=== PATIENT | male | born 1960 | race Caucasian/White ===

== ENCOUNTER 2024-01-16 01:02 | Inpatient (IN) | payer MEDICARE, OTHER, SELFPAY ==
[2024-01-15 18:25] VITALS: BP 142/80
[2024-01-15] MEDS: OMNIPAQUE 50 ML PO (18:44)
[2024-01-15 18:54] LABS: % Basophils 0.4 % (0-2); % Eosinophils 1.5 % (0-6); % Immature Granulocytes 0.5 % (0-0.5); % Lymphocytes 27.1 % (20.5-51.1); % Monocytes 13.8 % (1.7-9.3); % Neutrophils 56.7 % (42.2-75.2); Absolute Eosinophils 0.1 10^3/uL (0-0.7); Absolute Lymphocytes 2.1 10^3/uL (1.2-3.4); Absolute Monocytes 1.1 10^3/uL (0.1-0.6); Absolute Neutrophils 4.5 10^3/uL (1.4-6.5); Hemoglobin 9.9 g/dL (13.0-18.0); Mean Corp Hgb Conc. 30.9 g/dL (33.0-37.0); Mean Corpuscular Volume 87.2 fL (80.0-94.0); Mean Platelet Volume 9.4 fL (7.4-10.4); Nucleated Red Blood Cells % 0 % (-); Platelet Count 411 10^3/uL (130-400); Red Blood Cell Count 3.67 10^6/uL (4.70-6.10); Red Cell Dist. Width 14.1 % (11.5-14.5); White Blood Cell Count 7.9 10^3/uL (4.8-10.8)
[2024-01-15 19:10] LABS: ALT (SGPT) 12 U/L (0-50); AST (SGOT) 20 U/L (17-59); Albumin 3.7 g/dl (3.5-5.0); Alkaline Phosphatase 83 U/L (38-126); Blood Urea Nitrogen 22 mg/dl (9-20); Calcium 9.3 mg/dl (8.4-10.2); Carbon Dioxide 36 mmol/L (22-30); Chloride 96 mmol/L (98-107); Glucose 111 mg/dl (70-99); Potassium 4.5 mmol/L (3.5-5.1); Sodium 137 mmol/L (135-145); Total Bilirubin 0.2 mg/dl (0.2-1.3); Total Protein 6.7 g/dl (6.3-8.2); eGFR > 60.00
[2024-01-15 19:47] VITALS: BP 144/94
[2024-01-15 19:54] VITALS: BMI 24.2
[2024-01-15 20:00] VITALS: BP 132/88
[2024-01-15] MEDS: DILAUDID 1 MG IV ×3 (20:36→23:47)
[2024-01-15 21:00] VITALS: BP 127/81
[2024-01-15 22:00] VITALS: BP 149/81
--- NOTE | 2024-01-15 22:51 | ED.GENMED ---
History of Present Illness
General
Chief Complaint: Abdominal Pain
Source: patient
Exam Limitations: none
Time Seen by Provider: 01/15/24 19:50
Nursing documentation reviewed up to this point in time: agreed with
History of Present Illness
History of Present Illness:
63-year-old male past medical history of COPD chronically on oxygen presenting to the emergency department with worsening left lower quadrant abdominal pain initially was somewhat intermittent over the past few weeks but specifically worsening
today's. Has noticed some chills and nausea. Has had some trouble with bowel movements more recently.
Past History
Past History
ED Past Medical History: CAD, COPD, Hypercholesterolemia, Psychiatric (Anxiety) and Other (Chronic neck pain, narcotic dependent, chronic daily migraines)
ED Past Surgical History: Cardiac (PTCA with stent, 2004, 2007), Orthopedic (Rotator cuff repair, C4-C5 fusion) and Tonsilectomy
Social History
Tobacco: Smoker
Alcohol: Occasional
Personal:
Living: with family
Employment: Employed ([employer])
Family History
Family History: Hypertension and CAD
Review of Systems
Review of Systems
Allergies reviewed?: Yes
All Other Systems: ROS reviewed and negative except as documented in HPI and ROS
Phy Exam
Physical Exam
Physical Exam:
GENERAL: Alert , in no apparent distress
EYE: pupils equal and reactive
NECK: Supple, no significant adenopathy.
ENT: o/p clr, mmm.
CARDIAC: Regular rate and rhythm .
LUNGS: Clear breath sounds bilaterally, no acute respiratory distress, no wheezes/rales/rhonchi
ABDOMEN: Left-sided abdominal pain to palpation otherwise soft abdomen on the right side.
NEUROLOGICAL: Alert and oriented, no focal neuro deficits
SKIN: Warm and dry, skin intact.
MUSCULOSKELETAL: No edema, well perfused.
PSYCH: Normal and appropriate interaction.
Course
Orders/Labs/Results
Orders:
Orders
01/15/24 18:33
CT Abd/pel W Iv And Oral Contr Urgent
Reason For Exam: LLQ pain
01/15/24 18:35
Iohexol [Omnipaque] See Protocol PO NOW STA
01/15/24 18:45
Complete Blood Count/With Diff Urgent
Comprehensive Metabolic Panel Urgent
01/15/24 20:29
HYDROmorphone [Dilaudid] 1 mg IV NOW STA
01/15/24 21:28
HYDROmorphone [Dilaudid] 1 mg IV NOW STA
01/15/24 23:31
0.9% Sodium Chloride 1000 ml [Nss] 1,000 ml IV BOLUS
01/15/24 23:34
Piperacillin/Tazo 3.375 Gram [Zosyn] 3.375 gram in 50 ml IV NOW
Abnormal Lab Results
01/15/24
18:45
RBC 3.67 L 10^6/uL
(4.70-6.10)
Hgb 9.9 L g/dL
(13.0-18.0)
Hct 32.0 L %
(39.0-52.0)
MCHC 30.9 L g/dL
(33.0-37.0)
Plt Count 411 H 10^3/uL
(130-400)
Absolute Monos (auto) 1.1 H 10^3/uL
(0.1-0.6)
Monocytes % 13.8 H %
(1.7-9.3)
Chloride 96 L mmol/L
(98-107)
Carbon Dioxide 36 H mmol/L
(22-30)
BUN 22 H mg/dl
(9-20)
Glucose 111 H mg/dl
(70-99)
01/15/24 18:45
01/15/24 18:45
Vital Signs
Initial and Last Documented VS:
Initial Vital Signs
Temp Pulse Resp BP Pulse Ox
98.3 F 99 18 142/80 99
01/15/24 18:25 01/15/24 18:25 01/15/24 18:25 01/15/24 18:25 01/15/24 18:25
Last Documented Vital Signs
Temp Pulse Resp BP Pulse Ox
98.3 F 88 18 160/56 96
01/15/24 18:25 01/15/24 23:00 01/15/24 23:00 01/15/24 23:00 01/15/24 23:00
MDM/Problems Addressed
MDM/Problems Addressed:
63-year-old male presenting to the emergency department today with concerns of left lower quadrant pain worsening over the past day. Significant discomfort to palpation to the left lower quadrant on exam otherwise abdomen soft. Hypertensive here
but otherwise vital signs without emergent features. Labs with elevated BUN to creatinine ratio. Patient given fluids. CT scan showing severe wall thickening and stranding of fat representing diverticulitis of the sigmoid colon additionally there
is wall thickening of the distal descending colon containing prominent stool likely representing relative obstruction on the basis of severe diverticulitis. Concerning these findings plan to start IV antibiotics and admit for further monitoring and
treatment.
*Critical Care Note
Total Time (30-74mins, 75-104mins- exclusive of procedures): Not Applicable
ED Attending Note
-
Portions of this chart may have been created with voice recognition software.� Occasional wrong word or��sound alike� substitutions may have occurred due to the inherent limitations of voice recognition software.
Discharge Plan
Departure
Patient Disposition: Admit
Date of Disposition: 01/15/24
Time of Disposition: 23:44
Admit to: Med/Surg
Admit to doctor: Andrew
Presentation/result/management discussed w/ accepting MD/DO: Hospitalist
Patient with high blood pressure during this ER visit?: No
Condition: Good
Covid-19: Not Applicable
Discharge Problem:
Diverticulitis
Prescriptions:
No Action
atorvastatin 40 mg tablet
40 mg PO QPM
diltiazem HCl 180 mg capsule,extended release 24hr
180 mg PO DAILY
ondansetron HCl 8 mg tablet
8 mg PO BIDPRN PRN (Reason: nausea/vomiting)
lidocaine-prilocaine 2.5-2.5 % cream
1 applic topical TIDPRN PRN (Reason: back pain)
isosorbide mononitrate 60 mg tablet extended release 24 hr
60 mg PO BID
theophylline 600 mg tablet extended release 24 hr
600 mg PO DAILY
nitroglycerin 0.4 mg tablet, sublingual
0.4 mg sublingual [id number] PRN (Reason: chest pain)
docusate sodium 100 mg Capsule
100 mg PO DAILY
lorazepam 1 mg tablet
1 mg PO TIDPRN PRN (Reason: anxiety)
Patient Comments:
01/15/2024: last filled 11/26/23, [facility]
albuterol sulfate [Ventolin HFA] 90 mcg/actuation HFA aerosol inhaler
2 puff INHALATION R QIDPRN PRN (Reason: sob/wheezing)
Coricidin 2-325 mg Tablet
1 tab PO DAILYPRN PRN (Reason: congestion)
simethicone [Gas-X] 80 mg Tablet,Chewable
80 mg PO DAILYPRN PRN (Reason: bloating)
tiotropium bromide [Spiriva with HandiHaler] 18 mcg Capsule, W/Inhalation Device
1 cap INHALATION R DAILY
budesonide-formoterol [Symbicort] 160-4.5 mcg/actuation Hfa Aerosol Inhaler
2 puff INHALATION R BID
oxycodone 20 mg tablet
20 mg PO Q4HPRN PRN (Reason: moderate pain)
Patient Comments:
01/15/2024: last filled 07/17/24, 180 [facility]
roflumilast 500 mcg tablet
500 mcg PO DAILY
oxycodone [OxyContin] 20 mg tablet,oral only,ext.rel.12 hr
20 mg PO Q12H
Patient Comments:
01/15/2024: last filled 12/23/23, 60 [facility]
IBgard 90 mg Capsule,Delayed,Extend.Release
180 mg PO DAILY
baclofen 5 mg tablet
5 mg PO TIDPRN PRN (Reason: muscle pain)
Nurtec ODT 75 mg tablet,disintegrating
75 mg PO Q48H
pantoprazole 20 mg Tablet,Delayed Release (Dr/Ec)
20 mg PO DAILYPRN PRN (Reason: gi issues)
Referrals:
Diego Lemos MD [Family Provider] -
Interventions
Interventions:
*Risk Screen - Suicide Last Done: 01/15/24 18:25
*General Assessment Last Done: 01/15/24 18:25
*Neglect/Abuse Screening Last Done: 01/15/24 18:25
ED- Fall Risk Assessment Last Done: 01/15/24 20:40
*ED COVID-19 Vaccine History Last Done: 01/15/24 19:41
QN-Idpkqe-Lzziavqmjq Assessment Last Done: 01/15/24 20:40
Discharge Date and Time
Print Language: FRISIAN
[2024-01-15 23:00] VITALS: BP 160/56
[2024-01-15] MEDS: ZOSYN 50 IV (23:47)
[2024-01-15] MEDS: NSS 1000 IV (23:47)
[2024-01-16] VITALS (9 sets, daily range): BP systolic 112–174; BP diastolic 64–94; PULSE 91–103; BMI 23.4
--- NOTE | 2024-01-16 00:52 | HPS.HSE ---
Family Physician
-
Family Physician: Diego Lemos
Chief Complaint
-
Abd Pain
History of Present Illness
Patient is a 63y M with PMH significant for severe COPD, chronic hypoxemic respiratory failure and chronic pain syndrome who presents to ED complaining of abdominal pain. Patient states that he has been having intermittent abdominal pain in the
LLQ for the past 2 years. He states that he was hospitalized at [facility] about 1 1/2 years ago, but states no definitive diagnosis was reached. He reports alternating constipation and diarrhea - but mostly constipation. He denies any bloody stools.
No fevers / chills. No N/V.
Patient states that he has never had a colonoscopy in the past.
He has severe COPD and states that he is working towards transplant consideration. He has several barriers prior to listing however.
Complicating this is that the severity of his lung disease prevents him from many routine procedures, etc that would be required for his listing.
He is followed by Dr. Bose (Pulmonology) and Dr. Dinero (Pain Management).
Medical History
Past Medical History
Past Medical History: Reports Other
Additional Past Medical History:
Severe COPD
Chronic Hypoxemic Respiratory Failure
Chronic Pain Syndrome
Chronic Opioid Dependence
ASCVD
Hypertension
Cervical DDD
Past Surgical History: Reports Other
Additional Past Surgical History:
C4-6 Fusion
PTCA with Stent x 2
Social History
Tobacco: Former Smoker (Quit smoking in 2015. Approx 40 pack years total use.)
Alcohol: None
Drug: None
Family History
Family History: Other (Father: CAD Mother: Cirrhosis Brother: CAD Sister: DDD)
Allergies / Home Medications
Allergies reflects when Allergies were last updated in [employer] [facility]
Home Medications with original date entered in [employer] [facility])
Allergy/Medication List:
Allergies
Allergy/AdvReac Type Severity Reaction Status Date / Time
Sulfa (Sulfonamide Allergy Intermediate Shortness Verified 01/15/24 18:24
Antibiotics) of Breath
Home Medications
albuterol sulfate 90 mcg/actuation aerosol inhaler (Ventolin HFA) 2 puff inhalation R QIDPRN PRN sob/wheezing 01/15/24
atorvastatin 40 mg tablet 40 mg PO QPM 01/15/24
baclofen 5 mg tablet 5 mg PO TIDPRN PRN muscle pain 01/15/24
budesonide-formoterol HFA 160 mcg-4.5 mcg/actuation aerosol inhaler (Symbicort) 2 puff inhalation R BID 01/15/24
chlorpheniramine-acetaminophen 2 mg-325 mg tablet 1 tab PO DAILYPRN PRN congestion 01/15/24
diltiazem HCl 180 mg capsule,extended release 24 hr 180 mg PO DAILY 01/15/24
docusate sodium 100 mg capsule 100 mg PO DAILY 01/15/24
isosorbide mononitrate 60 mg tablet,extended release 24 hr 60 mg PO BID 01/15/24
lidocaine-prilocaine 2.5 %-2.5 % topical cream 1 applic topical TIDPRN PRN back pain 01/15/24
lorazepam 1 mg tablet 1 mg PO TIDPRN PRN anxiety 01/15/24
nitroglycerin 0.4 mg sublingual tablet 0.4 mg sublingual [id number] PRN chest pain 01/15/24
ondansetron HCl 8 mg tablet 8 mg PO BIDPRN PRN nausea/vomiting 01/15/24
oxycodone 20 mg tablet 20 mg PO Q4HPRN PRN moderate pain 01/15/24
oxycodone 20 mg tablet,crush resistant,extended release 12 hr (OxyContin) 20 mg PO Q12H 01/15/24
pantoprazole 20 mg tablet,delayed release 20 mg PO DAILYPRN PRN gi issues 01/15/24
peppermint oil 90 mg capsule,delayed,extended release (IBgard) 180 mg PO DAILY 01/15/24
rimegepant 75 mg disintegrating tablet (Nurtec ODT) 75 mg PO Q48H 01/15/24
roflumilast 500 mcg tablet 500 mcg PO DAILY 01/15/24
simethicone 80 mg chewable tablet 80 mg PO DAILYPRN PRN bloating 01/15/24
theophylline 600 mg tablet,extended release 24 hr 600 mg PO DAILY 01/15/24
tiotropium bromide 18 mcg capsule with inhalation device (Spiriva with HandiHaler) 1 cap inhalation R DAILY 01/15/24
Review of Systems
-
History Source: Patient
A 12 point ROS was completed and negative except as noted: Yes
Constitutional: Denies Fever, Fatigue or Chills
Respiratory: Reports Trouble Breathing; Denies Cough
Cardiac: Denies Chest Pain or Palpitations
Abdomen/GI: Reports Abdominal Pain, Diarrhea and Constipated; Denies Nausea, Vomiting, Bloody Stools or Black Stools
: Denies Dysuria, Frequency or Flank Pain
Neurological: Denies Dizzy or Headache
Psych: Denies Depression or Anxiety
Physical Exam
Vital Signs
Vital Signs
Temp Pulse Resp BP Pulse Ox
98.3 F 82 18 143/85 96
01/15/24 18:25 01/16/24 00:00 01/16/24 00:00 01/16/24 00:00 01/16/24 00:00
Physical Exam
General: Other (63y M in no acute distress.)
HEENT: Other (Dry MM. Poor dentition.)
Respiratory: Other (Decreased BS throughout. Otherwise clear.)
Cardiac: S1/S2 and Regular Rhythm; No Murmur
GI: Other (Abdomen is softly distended. Pos tenderness along L side. No rebound / guarding. Pos BS.)
Musculoskeletal: No Clubbing, No Cyanosis and No Edema
Neuro: AO x 3
Laboratory Results
-
01/15/24 18:45
01/15/24 18:45
Laboratory Results
Total Bilirubin 0.2 mg/dl (0.2-1.3) 01/15/24 18:45
AST 20 U/L (17-59) 01/15/24 18:45
ALT 12 U/L (0-50) 01/15/24 18:45
Alkaline Phosphatase 83 U/L (38-126) 01/15/24 18:45
Impression/Plan
-
A/P: Patient is a 63y M with PMH significant for severe COPD and chronic pain syndrome who presents to ED complaining of abdominal pain x 2 years.
Sigmoid Stricture
Diverticular Disease
- Admit for further evaluation and treatment.
- Unclear how much of this represents acute disease versus chronic changes.
- CT imaging and history suggest inflammation and resultant stricture in the sigmoid region with partial obstruction, pain, constipation, etc.
- Will cover with IV abx for now.
- Colorectal Surgery evaluation.
- Differential includes chronic sigmoid diverticulitis versus underlying malignancy.
- Patient would likely benefit from eventual colonoscopy if this can be arranged with his underlying lung disease.
- Supportive care including pain control, IVFs, etc.
- Bowel regimen.
Severe COPD
Chronic Hypoxemic Respiratory Failure
- Stable. No acute dyspnea or changes in oxygen requirements.
- Patient states that he typically uses 6-8 lpm of supplemental O2 at home.
- Continue current inhaler regimen. Albuterol nebs PRN.
- Continue medications (Daliresp / Theophylline).
- Follow for any clinical changes.
ASCVD
- Stable. No complaints of chest pain.
- Patient is not currently on ASA despite history of coronary stenting x 2.
- Will start low dose ASA.
- Continue statin.
Chronic Pain Syndrome
Chronic Opioid Dependence
- Followed by Dr. Dinero.
- Med regimen confirmed with PDMP.
- Continue usual regimen without changes and follow-up with usual Pain Med doc after discharge.
- Suspect that chronic opioid use has contributed to chronic constipation and resultant sigmoid changes.
Normocytic Anemia
- No recent priors to compare.
- Heme test stools.
- Check iron studies.
- Follow for changes in H&H.
DVT prophylaxis: Lovenox
Code Status: Full
[2024-01-16] MEDS: NSS 1000 IV ×2 (02:25→16:03)
[2024-01-16] MEDS: OXYCONTIN (CONTROLLED RELEASE) 20 MG PO ×3 (02:54→20:51)
[2024-01-16] MEDS: ATIVAN 1 MG PO ×2 (03:23→22:23)
[2024-01-16] MEDS: ZOSYN 50 IV ×3 (05:14→17:19)
[2024-01-16] MEDS: DILAUDID 0.5 MG IV (05:17)
[2024-01-16] MEDS: SYMBICORT 160/4.5 MCG INHALER 2 PUFF INH ×2 (07:06→19:38)
[2024-01-16] MEDS: SPIRIVA RESPIMAT 2.5 MCG 2 PUFF INH (07:06)
[2024-01-16 07:07] LABS: Hematocrit 30.5 % (39.0-52.0); Hemoglobin 9.5 g/dL (13.0-18.0); Mean Corp Hgb Conc. 31.1 g/dL (33.0-37.0); Mean Corpuscular Volume 83.6 fL (80.0-94.0); Mean Platelet Volume 9.4 fL (7.4-10.4); Platelet Count 369 10^3/uL (130-400); Red Blood Cell Count 3.65 10^6/uL (4.70-6.10); Red Cell Dist. Width 14.1 % (11.5-14.5); White Blood Cell Count 6.7 10^3/uL (4.8-10.8)
[2024-01-16] MEDS: ROXICODONE 20 MG PO ×3 (07:48→17:50)
[2024-01-16 08:09] LABS: Blood Urea Nitrogen 16 mg/dl (9-20); Calcium 8.7 mg/dl (8.4-10.2); Carbon Dioxide 34 mmol/L (22-30); Chloride 100 mmol/L (98-107); Estimated Creatinine Clearance 107 ml/min; Glucose 94 mg/dl (70-99); Iron 44 ug/dl (49-181); Potassium 4.2 mmol/L (3.5-5.1); Sodium 137 mmol/L (135-145); eGFR > 60.00
[2024-01-16 08:18] LABS: Percent Saturation 22 % (20-50); Total Iron Binding Capacity 198 ug/dl (261-462)
[2024-01-16] MEDS: IMDUR (EXTENDED RELEASE) 60 MG PO ×2 (09:14→20:51)
[2024-01-16] MEDS: CARDIZEM CD 180 MG PO (09:14)
[2024-01-16] MEDS: DALIRESP 500 MCG PO (09:17)
[2024-01-16] MEDS: COLACE 100 MG PO ×2 (09:17→20:51)
[2024-01-16] MEDS: UNIPHYL 600 MG PO (09:18)
[2024-01-16] MEDS: DILAUDID 1 MG IV ×2 (09:21→16:13)
[2024-01-16] MEDS: MIRALAX PO (10:50)
[2024-01-16] MEDS: LOW STRENGTH ASPIRIN 81 MG PO (11:08)
[2024-01-16] MEDS: FIORICET 1 TAB PO (11:20)
--- NOTE | 2024-01-16 12:52 | CON.CRS ---
Consultation
-
Date/Time Consultation Requested: 01/16/24 @7:22
Date/Time Consultation Performed: 01/16/24 @9:30
Requesting Provider: Que Morales DO
Performing Provider: Jaime Cortez MD
Reason for Consultation: Abdominal pain
Medical History
-
Chief Complaint: Abdominal pain
History of Present Illness:
63-year-old male with multiple medical problems including severe COPD on oxygen and chronic pain on narcotics, who presents to the emergency room last night with worsening abdominal pain.� He has had diffuse abdominal pain, worse on the left side
for the past couple of years.� He has a history of constipation and last move his bowels this morning.� He denies any distention, nausea, vomiting, fevers or chills.� He has not had a colonoscopy and there is no family history of colon cancer.� He
states he was hospitalized at [facility] about 1.5 years ago with similar symptoms but no diagnosis given.
He has remained afebrile and his vital signs are normal.� His white count is 6.7 and his hemoglobin is 9.5 g/dL.� A CT scan of the abdomen and pelvis with contrast reveals a long segment of wall thickening of the sigmoid colon and stranding of the
pericolonic fat.� Proximal to the inflammation there is a large amount of stool but the cecum is not dilated.
Past Medical History
Past Medical History: CAD, COPD (severe), HTN and Other (chronic pain syndrome with opioid dependence; ASCVD, cervical DDD)
Past Surgical History: Cardiac (Stent) and Orthopedic (Fusion C4-6)
Social History
Tobacco: Former Smoker
Alcohol: None
Family History
Family History: Reviewed & Not Pertinent
Allergies / Home Medications
Allergy/AdvReac Type Severity Reaction Status Date / Time
Sulfa (Sulfonamide Allergy Intermediate Shortness Verified 01/15/24 18:24
Antibiotics) of Breath
�Medication �Instructions �Recorded �Confirmed �Type
albuterol sulfate 90 mcg/actuation 2 puff inhalation R QIDPRN PRN 01/15/24 01/15/24 History
aerosol inhaler (Ventolin HFA) sob/wheezing
atorvastatin 40 mg tablet 40 mg PO QPM High Cholesterol 01/15/24 01/15/24 History
baclofen 5 mg tablet 5 mg PO TIDPRN PRN muscle pain 01/15/24 01/15/24 History
budesonide-formoterol HFA 160 2 puff inhalation R BID 01/15/24 01/15/24 History
mcg-4.5 mcg/actuation aerosol Lung/Breathing Issues
inhaler (Symbicort)
chlorpheniramine-acetaminophen 2 1 tab PO DAILYPRN PRN congestion 01/15/24 01/15/24 History
mg-325 mg tablet
diltiazem HCl 180 mg 180 mg PO DAILY Blood Pressure 01/15/24 01/15/24 History
capsule,extended release 24 hr
docusate sodium 100 mg capsule 100 mg PO DAILY Constipation 01/15/24 01/15/24 History
isosorbide mononitrate 60 mg 60 mg PO BID Heart 01/15/24 01/15/24 History
tablet,extended release 24 hr Disease/Condition
lidocaine-prilocaine 2.5 %-2.5 % 1 applic topical TIDPRN PRN back 01/15/24 01/15/24 History
topical cream pain
lorazepam 1 mg tablet 1 mg PO TIDPRN PRN anxiety 01/15/24 01/15/24 History
nitroglycerin 0.4 mg sublingual 0.4 mg sublingual [id number] PRN 01/15/24 01/15/24 History
tablet chest pain
ondansetron HCl 8 mg tablet 8 mg PO BIDPRN PRN nausea/vomiting 01/15/24 01/15/24 History
oxycodone 20 mg tablet 20 mg PO Q4HPRN PRN moderate pain 01/15/24 01/15/24 History
oxycodone 20 mg tablet,crush 20 mg PO Q12H Pain 01/15/24 01/15/24 History
resistant,extended release 12 hr
(OxyContin)
pantoprazole 20 mg tablet,delayed 20 mg PO DAILYPRN PRN gi issues 01/15/24 01/15/24 History
release
peppermint oil 90 mg 180 mg PO DAILY Supplement 01/15/24 01/15/24 History
capsule,delayed,extended release
(IBgard)
rimegepant 75 mg disintegrating 75 mg PO Q48H migraine 01/15/24 01/15/24 History
tablet (Nurtec ODT)
roflumilast 500 mcg tablet 500 mcg PO DAILY Lung/Breathing 01/15/24 01/15/24 History
Issues
simethicone 80 mg chewable tablet 80 mg PO DAILYPRN PRN bloating 01/15/24 01/15/24 History
theophylline 600 mg 600 mg PO DAILY Lung/Breathing 01/15/24 01/15/24 History
tablet,extended release 24 hr Issues
tiotropium bromide 18 mcg capsule 1 cap inhalation R DAILY 01/15/24 01/15/24 History
with inhalation device (Spiriva Lung/Breathing Issues
with HandiHaler)
ldwyelaxaz-oqraxcusystyh-kelyvecv 1 cap PO QID PRN migraine 01/16/24 01/16/24 History
50 mg-300 mg-40 mg capsule
Review of Systems
-
History Source: Patient
All other systems: Negative unless noted
A 10 point review of systems was completed, and was negative except as per HPI.
Physical Exam
Vital Signs
Temp 97.7 F 01/16/24 11:00
Pulse 96 01/16/24 11:00
Resp Rate 18 01/16/24 11:00
Blood pressure 116/65 01/16/24 11:00
SaO2 99 01/16/24 11:00
01/15/24 01/16/24 01/17/24
06:59 06:59 06:59
Actual Weight 71.923 kg
Body Mass Index (BMI) 23.4
Lab Results / Allergies
01/16/24 06:53
01/16/24 06:53
WBC 6.7 10^3/uL (4.8-10.8) 01/16/24 06:53
Hgb 9.5 g/dL (13.0-18.0) L 01/16/24 06:53
Hct 30.5 % (39.0-52.0) L 01/16/24 06:53
Plt Count 369 10^3/uL (130-400) 01/16/24 06:53
Abs Immat Gran (auto) 0.0 10^3/uL (0-0.05) 01/15/24 18:45
Neutrophils % 56.7 % (42.2-75.2) 01/15/24 18:45
Allergy/AdvReac Type Severity Reaction Status Date / Time
Sulfa (Sulfonamide Allergy Intermediate Shortness Verified 01/15/24 18:24
Antibiotics) of Breath
Physical Exam
General: Well Developed, Well Nourished (chronically ill) and No Apparent Distress
HEENT: Anicteric
GI: Soft, Non Distended and Tender (left side with fullness; no peritoneal signs)
Musculoskeletal: No Edema
Skin: Warm
Neuro: Awake and Alert
Psych: Calm
Data Reviewed
-
CT Scan: Image Personally Visualized and interpreted, Report Reviewed by me and Discussed with Patient
Labs: Labs Reviewed by me and Discussed with Patient
Assessment / Plan
-
Probable sigmoid diverticulitis with a possible element of a stricture and partial obstruction.
I reviewed the current findings with the patient and discussed the evaluation and treatment options. We discussed nonoperative management versus surgery with the risks and benefits of each. He is very high risk for surgery given his comorbidities.
Surgery would involve an open incision and colostomy, which could be permanent. At this point I do not feel surgery is indicated and we will try to manage him with laxatives, both oral and enemas. Recommend staying on a clear liquid diet for now.
If no significant improvement, I have ordered a Gastrografin enema for the morning to rule out a stricture. Consideration for a colonic stent will be given which also carries a several risks. Continue antibiotics and will follow. All questions
answered.
[2024-01-16] MEDS: CITROMA PO (14:09)
[2024-01-16] MEDS: CITROMA 300 ML PO (15:03)
--- NOTE | 2024-01-16 15:22 | CM ---
Patient seen at bedside with physician. Patient states that he lives in a one story home with his Fiance and they had a walker and a concentrator- up to 10 liters as well as bottles that go up to 15 liters. Patient stated that his PCP is Dr. Liang
man and that [facility]. Patient uses [facility] for his [facility] O[facility] needs [facility]. Patient has had [facility] in the past ans has a [facility] hearing officer as well as care from his fiance. Patient plan is for
discharge home with [facility] if needed and [facility]. Patient for further testig tomorrow. CM will continue to follow for discharge planning needs.
Plan; home with [facility]; pending medical treatment plan
--- NOTE | 2024-01-16 16:26 | W.PN.HOSP.TC ---
Today's Communication/Plan
-
consult pulm
apprec CRS
for gastrograffin enema tomorrow
Assessment / Plan
Assessment / Plan
pt is a 63 year old male
Sigmoid Stricture likely from Diverticular Disease--likely constipation due to stricture too--apprec CRS and getting gastrograffin enema tomorrow- CT imaging and history suggest inflammation and resultant stricture in the sigmoid region with partial
obstruction, pain, constipation, etc.--cont zosyn- Differential includes chronic sigmoid diverticulitis versus underlying malignancy - Patient would likely benefit from eventual colonoscopy if this can be arranged with his underlying lung disease.
Severe COPD--Chronic Hypoxemic Respiratory Failure-- - Patient states that he typically uses 6-8 lpm of supplemental O2 at home- Continue current inhaler regimen. Albuterol nebs PRN- Continue medications (Daliresp / Theophylline)--consult pulmonary
ASCVD- Stable. No complaints of chest pain- Patient is not currently on ASA despite history of coronary stenting x 2.- Will start low dose ASA- Continue statin.
Chronic Pain Syndrome with Chronic Opioid Dependence - Followed by Dr. Dinero- Med regimen confirmed with PDMP - Continue usual regimen without changes and follow-up with usual Pain Med doc after discharge - Suspect that chronic opioid use has
contributed to chronic constipation and resultant sigmoid changes.
Normocytic Anemia--likely of chronic disease--not iron deficient
DVT prophylaxis: Lovenox
Code Status: Full
Anticipated Discharge: > 48 hours
Subjective/Interval History
-
Date of Service: January 16, 2024
pt c/o LLQ pain, better with increased dilaudid
Objective Data
-
Labs:
Laboratory Results
01/16/24
06:53
WBC 6.7
Hgb 9.5 L
Hct 30.5 L
Plt Count 369
Sodium 137
Potassium 4.2
Chloride 100
Carbon Dioxide 34 H
BUN 16
Creatinine 0.7
Glucose 94
Calcium 8.7
Vital Signs:
max temp for 24 hours
01/15/24
18:25
Temp 98.3 F
Vital Signs
Temp Pulse Resp BP Pulse Ox
97.7 F 96 18 116/65 99
01/16/24 11:00 01/16/24 11:00 01/16/24 11:00 01/16/24 11:00 01/16/24 11:00
I&O
01/15/24 01/16/24 01/17/24
06:59 06:59 06:59
Intake Total 480 / 480
Output Total 250 / 250
Balance 230 / 230
Review of Systems
-
All other systems: Reviewed and negative
Abdomen/GI: Reports Abdominal Pain
Physical Exam
-
General: Well Developed and Appears Chronically Ill
HEENT: Normocephalic, Atraumatic and Oxygen
Respiratory: Clear to Auscultation and Decreased Breath Sounds; Negative Wheezes or Rhonchi
Cardiac: Regular Rhythm and S1/S2; Negative Murmur
GI: Soft, Nondistended, Normal Bowel Sounds and Tender (LLQ--does not want me to palpate much)
Musculoskeletal: No Clubbing, No Cyanosis and No Edema
Neuro: Awake and Alert
Psych: Calm
--- NOTE | 2024-01-16 17:09 | CON.PUL ---
Consultation
Consultation Request
Date/Time Consultation Requested: 01/15
Date/Time Consultation Performed: 01/15
Reason for Consultation: COPD, hypoxia
Medical History
-
History of Present Illness:
History obtained from the patient, hospital records. Patient is a pleasant 63-year-old male with history of COPD on chronic oxygen therapy 6 L, since 2011, presents with months of waxing and waning abdominal pain. Patient developed worsening left
lower quadrant pain with some chills and nausea. Patient denied fevers, sweats, blood in urine or stool. He typically is on 6 L of oxygen at home, sometimes goes up to 8 to 10 L with activity. Upon arrival to [facility], afebrile, pulse
99, breathing 18, blood pressure 142/80, 99% saturation. Patient was given IV fluids. CT imaging showed severe bowel wall thickening with diverticulitis of the sigmoid colon with severe diverticulitis. Antibiotics were started. We are asked to
comment on patient's pulmonary process
At baseline, he is able to ambulate about 30 yards with 6 L. He does not do any regular exercise. He is compliant with his inhaler regimen and follows pulmonary at [place] ([facility])
.
PMH: Severe COPD on home oxygen, questionable history of asthma, hypertension, chronic pain syndrome with opioid dependence sees pain specialist, history of coronary disease with stent per records, hepatitis A in the 1980s questionable treatment?.
History of cervical surgery C4-C6 fusion
Past Medical History
Past Medical History: None (See above)
Past Surgical History: None (See above)
Social History
Tobacco: Former Smoker ([id number], quit 2014)
Alcohol: None
Drug: None
Personal: Other (Fianc�)
Living: With Family (Fianc�)
Employment: Retired ([employer])
Environmental Exposures: Was also in the [employer] stationed in [place]
Family History
Family History: Other (Family history negative for lung disease, blood clots, lung cancer. There is a family history of heart disease and hepatitis)
Allergies / Home Medications
Allergies
Allergy/AdvReac Type Severity Reaction Status Date / Time
Sulfa (Sulfonamide Allergy Intermediate Shortness Verified 01/15/24 18:24
Antibiotics) of Breath
Home Medications
�Medication �Instructions �Recorded �Confirmed �Last Taken �Type
albuterol sulfate 90 mcg/actuation 2 puff inhalation R QIDPRN PRN 01/15/24 01/15/24 Unknown History
aerosol inhaler (Ventolin HFA) sob/wheezing
atorvastatin 40 mg tablet 40 mg PO QPM High Cholesterol 01/15/24 01/15/24 Unknown History
baclofen 5 mg tablet 5 mg PO TIDPRN PRN muscle pain 01/15/24 01/15/24 Unknown History
budesonide-formoterol HFA 160 2 puff inhalation R BID 01/15/24 01/15/24 Unknown History
mcg-4.5 mcg/actuation aerosol Lung/Breathing Issues
inhaler (Symbicort)
chlorpheniramine-acetaminophen 2 1 tab PO DAILYPRN PRN congestion 01/15/24 01/15/24 Unknown History
mg-325 mg tablet
diltiazem HCl 180 mg 180 mg PO DAILY Blood Pressure 01/15/24 01/15/24 Unknown History
capsule,extended release 24 hr
docusate sodium 100 mg capsule 100 mg PO DAILY Constipation 01/15/24 01/15/24 Unknown History
isosorbide mononitrate 60 mg 60 mg PO BID Heart 01/15/24 01/15/24 Unknown History
tablet,extended release 24 hr Disease/Condition
lidocaine-prilocaine 2.5 %-2.5 % 1 applic topical TIDPRN PRN back 01/15/24 01/15/24 Unknown History
topical cream pain
lorazepam 1 mg tablet 1 mg PO TIDPRN PRN anxiety 01/15/24 01/15/24 Unknown History
nitroglycerin 0.4 mg sublingual 0.4 mg sublingual [id number] PRN 01/15/24 01/15/24 Unknown History
tablet chest pain
ondansetron HCl 8 mg tablet 8 mg PO BIDPRN PRN nausea/vomiting 01/15/24 01/15/24 Unknown History
oxycodone 20 mg tablet 20 mg PO Q4HPRN PRN moderate pain 01/15/24 01/15/24 Unknown History
oxycodone 20 mg tablet,crush 20 mg PO Q12H Pain 01/15/24 01/15/24 Unknown History
resistant,extended release 12 hr
(OxyContin)
pantoprazole 20 mg tablet,delayed 20 mg PO DAILYPRN PRN gi issues 01/15/24 01/15/24 Unknown History
release
peppermint oil 90 mg 180 mg PO DAILY Supplement 01/15/24 01/15/24 Unknown History
capsule,delayed,extended release
(IBgard)
rimegepant 75 mg disintegrating 75 mg PO Q48H migraine 01/15/24 01/15/24 Unknown History
tablet (Nurtec ODT)
roflumilast 500 mcg tablet 500 mcg PO DAILY Lung/Breathing 01/15/24 01/15/24 Unknown History
Issues
simethicone 80 mg chewable tablet 80 mg PO DAILYPRN PRN bloating 01/15/24 01/15/24 Unknown History
theophylline 600 mg 600 mg PO DAILY Lung/Breathing 01/15/24 01/15/24 Unknown History
tablet,extended release 24 hr Issues
tiotropium bromide 18 mcg capsule 1 cap inhalation R DAILY 01/15/24 01/15/24 Unknown History
with inhalation device (Spiriva Lung/Breathing Issues
with Handi[employer]er)
ovdzsdxwdu-gyskikcyiuzeq-oqmfalcb 1 cap PO QID PRN migraine 01/16/24 01/16/24 Unknown History
50 mg-300 mg-40 mg capsule
Review of Systems
-
All other systems: Negative unless noted
Vitals / Labs / Diagnostic Testing
Vital Signs
Temp Pulse Resp BP Pulse Ox
98.4 F 97 18 112/70 99
01/16/24 15:00 01/16/24 15:00 01/16/24 15:00 01/16/24 15:00 01/16/24 15:00
Lab Data
01/16/24 06:53
01/16/24 06:53
Diagnostic Testing:
Physical Exam
-
HEENT: Normocephalic and Anicteric
Cardiovascular: S1/S2, Regular Rhythm, Murmur (n), Rub (n) and Peripheral Edema (n)
Respiratory: Wheeze (Few scattered expiratory, prolonged expiration), Rales (n), Rhonchi (n) and Non-Labored Respirations
GI: Soft, Distended and Tender (Positive bowel sounds, mild tympany)
Neurology: Awake, Alert and No Motor Deficits (Unable to sit up due to abdominal discomfort)
Skin: Other (No clubbing, cyanosis)
General: Comfortable
Assessment
-
63-year-old male with history of severe COPD on home oxygen, can use up to 8 to 10 L at times, diagnosed in 2011 on maintenance inhaler therapy of Spiriva/Symbicort, presents with few months of waxing waning abdominal pain, worsened found to have
severe diverticulitis. We are asked to comment on his pulmonary process
Acute diverticulitis
Sigmoid stricture suggestive
Partial obstruction
Severe COPD
6 to 8 L of oxygen at home
On oxygen therapy since 2011 emphysema per abdominal imaging
Anemia, admission hemoglobin 9.9
Elevated serum bicarbonate
Conditions present prior to admission
Coronary disease, history of stent
Details unclear
Chronic pain syndrome on chronic opioids
Follows pain management
History of hepatitis, 1980s
Was in the [employer], states he got hepatitis from the water in [place]
Family history of cirrhosis, heart disease
[id number] history of smoking, quit 2014
Plan/recommendations
At this time, patient appears to be comfortable, however has severe COPD on 6 to 8 L at home. He was placed on 4 L back in 2011
He is functional at home, takes care of himself, completes ADLs. Bumped up to 10 L when needed
Can walk up to 30 yards without having to stop to catch his breath
History of coronary disease noted
Sees pulmonary at [place] ([facility])
Moving forward
He appears to be at his baseline from a lung standpoint. He does have some mild wheezing on exam but air exchange is adequate. Elevated serum bicarbonate is noted
He is on optimal medical regimen for COPD including Symbicort/Spiriva/Roflumilast/theophylline. Not sure that theophylline is indicated to continue but will not make any changes at this time
Uses albuterol as needed
Continue with current regimen at this time
There is no indication for steroids at this time
Check a.m. ABG
Check EKG
Baseline chest x-ray
Clearly he would be high risk for any surgical intervention given his underlying lung disease
Discussed how abdominal pain can have significant negative effect on pulmonary status. If he were to have a colostomy and have any complications, he would be at high risk for prolonged mechanical ventilation, worsening respiratory status
Reviewed with patient at length. Will follow
[2024-01-16] MEDS: LOVENOX 40 MG SC (17:45)
[2024-01-16] MEDS: LIPITOR 40 MG PO (17:46)
[2024-01-16] MEDS: SENOKOT 17.2 MG PO (20:51)
[2024-01-17] VITALS (7 sets, daily range): BP systolic 99–130; BP diastolic 62–87; PULSE 83–103; BMI 23.4
[2024-01-17] MEDS: FIORICET 1 TAB PO ×3 (00:06→14:18)
[2024-01-17] MEDS: ZOSYN 50 IV ×4 (00:06→17:35)
[2024-01-17] MEDS: NSS IV (03:52)
[2024-01-17] MEDS: NSS 1000 IV ×2 (03:53→19:49)
[2024-01-17] MEDS: ROXICODONE 20 MG PO ×3 (03:58→17:36)
[2024-01-17 04:02] LABS: B.E. 7.3 mmol/L; HCO3 33.3 mmol/L (21-28); O2 Saturation % 99.2 % (94-98); PCO2 55 mmHg (35-48); PO2 96 mmHg (83-108); pH 7.39 (7.35-7.45)
[2024-01-17] MEDS: DILAUDID 1 MG IV ×2 (05:37→14:22)
[2024-01-17] MEDS: SYMBICORT 160/4.5 MCG INHALER 2 PUFF INH ×2 (07:33→19:44)
[2024-01-17] MEDS: SPIRIVA RESPIMAT 2.5 MCG 2 PUFF INH (07:33)
[2024-01-17 08:31] LABS: Hematocrit 25.8 % (39.0-52.0); Mean Corpuscular Volume 87.2 fL (80.0-94.0); Mean Platelet Volume 9.9 fL (7.4-10.4); Platelet Count 338 10^3/uL (130-400); Red Blood Cell Count 2.96 10^6/uL (4.70-6.10); Red Cell Dist. Width 13.9 % (11.5-14.5); White Blood Cell Count 6.5 10^3/uL (4.8-10.8)
[2024-01-17] MEDS: UNIPHYL 600 MG PO (08:41)
[2024-01-17] MEDS: DALIRESP 500 MCG PO (08:41)
[2024-01-17] MEDS: IMDUR (EXTENDED RELEASE) 60 MG PO ×2 (08:42→19:46)
[2024-01-17] MEDS: LOW STRENGTH ASPIRIN 81 MG PO (08:42)
[2024-01-17] MEDS: COLACE 100 MG PO ×2 (08:42→19:45)
[2024-01-17 08:44] LABS: ALT (SGPT) < 10 U/L (0-50); AST (SGOT) 16 U/L (17-59); Alkaline Phosphatase 65 U/L (38-126); Blood Urea Nitrogen 12 mg/dl (9-20); Calcium 8.6 mg/dl (8.4-10.2); Carbon Dioxide 34 mmol/L (22-30); Chloride 99 mmol/L (98-107); Estimated Creatinine Clearance 93 ml/min; Glucose 91 mg/dl (70-99); Magnesium 2.3 mg/dl (1.6-2.3); Potassium 4.3 mmol/L (3.5-5.1); Sodium 137 mmol/L (135-145); Total Bilirubin 0.3 mg/dl (0.2-1.3); Total Protein 5.6 g/dl (6.3-8.2); eGFR > 60.00
--- NOTE | 2024-01-17 08:44 | W.PN.PUL3 ---
Today's Communication / Plan
-
Continue outpatient COPD regimen
Check EKG
Patient not interested in NIV as outpatient
Assessment
-
63-year-old male with history of severe COPD on home oxygen, can use up to 8 to 10 L at times, diagnosed in 2011 on maintenance inhaler therapy of Spiriva/Symbicort, presents with few months of waxing waning abdominal pain, worsened found to have
severe diverticulitis. We are asked to comment on his pulmonary process
Acute diverticulitis
Sigmoid stricture suggestive
Partial obstruction
Severe COPD
6 to 8 L of oxygen at home
On oxygen therapy since 2011 emphysema per abdominal imaging
Anemia, admission hemoglobin 9.9
Elevated serum bicarbonate
chronic compensated hypercarbia, pCO2 55
Failed NIV many years ago
Conditions present prior to admission
History of left pneumothorax requiring chest tube 2020?
Hospitalized at [facility]
Coronary disease, history of stent
Details unclear
Chronic pain syndrome on chronic opioids
Follows pain management
History of hepatitis, 1980s
Was in the [employer], states he got hepatitis from the water in [place]
Family history of cirrhosis, heart disease
[id number] history of smoking, quit 2014
Plan/recommendations
At this time, patient appears to be comfortable, however has severe COPD on 6 to 8 L at home. He was placed on 4 L back in 2011
He is functional at home, takes care of himself, completes ADLs. Bumped up to 10 L when needed
Can walk up to 30 yards without having to stop to catch his breath
History of coronary disease noted
Sees pulmonary at [place] ([facility])
ABG reviewed. Chronic compensated hypercapnia
Chest x-ray reviewed. No acute findings, mildly elevated left hemidiaphragm
Moving forward
He appears to be at his baseline from a lung standpoint. No wheezing on today's exam. Elevated serum bicarbonate is noted
ABG pCO2 55
He is on optimal medical regimen for COPD including Symbicort/Spiriva/Roflumilast/theophylline. Not sure that theophylline is indicated to continue but will not make any changes at this time
Uses albuterol as needed
Continue with current regimen at this time
Patient would potentially benefit from nocturnal ventilation, NIV at home. He apparently tried CPAP/BiPAP many years ago, could not tolerate, did not feel it helped him
This will be deferred to his outpatient manager commission
There is no indication for steroids at this time
Check baseline EKG
Clearly he would be high risk for any surgical intervention given his underlying lung disease
Status post barium enema. Continue with management per colorectal surgery
Discussed how abdominal pain can have significant negative effect on pulmonary status. If he were to have a colostomy and have any complications, he would be at high risk for prolonged mechanical ventilation, worsening respiratory status
Disposition efforts
Subjective Data
-
Date of Service:
Date of Service: January 17, 2024
Subjective:
Patient primary complaint is lower abdominal discomfort. Feels his breathing is at baseline, mild cough, no hemoptysis, chest pain. ABG reviewed
Objective Data
Data Reviewed
Vital Signs / I&O / Oxygen:
Vital Signs
Temp Pulse Resp BP Pulse Ox
98.4 F 72 17 118/65 99
01/17/24 07:00 01/17/24 07:00 01/17/24 07:00 01/17/24 07:00 01/17/24 07:00
Intake and Output
01/16/24 01/17/24 01/18/24
06:59 06:59 06:59
Intake Total 480 / 480 1989
Output Total 250 / 250 200 / 200
Balance 230 / 230 1790 / 1790
SaO2 99
Nasal Cannula flow liters per 5
minute
Physical Exam
General: Comfortable
HEENT: Normocephalic
Cardiovascular: S1-S2, Regular Rhythm, Murmur (n) and Rub (n)
Respiratory: Wheeze (n), Crackles (n), Rhonchi (n), Non-Labored Respirations and Other (Bronchial, decreased)
GI: Soft, Non Distended and Tender
Neurology: Awake, Alert and No Motor Deficits
Skin: Cyanosis (n), Jaundice (n) and Rash (n)
Labs/Micro/Reports
Lab Data
01/17/24 07:49
01/17/24 07:49
Laboratory Results
01/17/24
03:53
pH 7.39
pCO2 55 H
pO2 96
HCO3 33.3 H
O2 Delivery Level
[2024-01-17] MEDS: OXYCONTIN (CONTROLLED RELEASE) 20 MG PO ×2 (08:51→19:45)
--- NOTE | 2024-01-17 09:15 | W.PN.CRS1 ---
Today's Communication / Plan
-
Gastrografin enema
N.p.o. for now
Assessment/Plan
-
Assessment: Probable sigmoid diverticulitis with a possible element of a stricture and partial obstruction
Plan:
-Scheduled for Gastrografin enema today to determine if ? stricture
-High risk surgical option and patient understands this
-N.p.o. until plan is determined
-Continue antibiotics
-Continue bowel laxatives
Subjective Data
Subjective Data
Date of Service: January 17, 2024
Patient states he is having lots of bowel movements. He has had about 3 total since last night and describes them as '8 or 9 large tennis balls'. He still has cramping. He has no nausea or vomiting. He states his abdominal pain comes and goes
but it is about the same.
Objective Data
-
Vital Signs
Temp Pulse Resp BP Pulse Ox
98.4 F 72 17 118/65 99
01/17/24 07:00 01/17/24 07:00 01/17/24 07:00 01/17/24 07:00 01/17/24 07:00
Intake & Output
01/16/24 01/17/24 01/18/24
06:59 06:59 06:59
Intake Total 480 / 480 1989
Output Total 250 / 250 200 / 200
Balance 230 / 230 1790 / 1790
Intake:
Oral fluids 480 / 480 690 / 690
IV fluids (Total) 1200 / 1200
IV piggybacks 100 / 100
Output:
Urine, Voided 250 / 250 200 / 200
Other:
Number of approximated MODERATE 1
amounts of urine
Lab Results
01/17/24 07:49
01/17/24 07:49
Physical Exam
-
General: No Acute Distress and AOx3
Abdomen: Soft, Non Distended and Tender
Skin: Warm and Dry
[2024-01-17] MEDS: ZOFRAN 4 MG IV (10:36)
[2024-01-17] MEDS: CARDIZEM CD 180 MG PO (10:37)
[2024-01-17] MEDS: MIRALAX PO (10:37)
--- NOTE | 2024-01-17 11:00 | PN.CDI ---
CDI
- -
CDI:
Physician Documentation Request
Admit Date: 01/16/24 01:02
Dear Doctor Kaveh,
Please review the following and provide your response in the progress notes.
Clinical Indicators:
Pt admitted with diverticulitis
01/15 [place] Dietitian note: ' compared to UBW of 170 lbs pt with a 6 lb (4%) weight loss in 2-3 weeks.
With sudden weight loss captain assistant and < 75% estimated needs > 5 days, pt meets AND/ASPEN criteria for mild protein calorie malnutrition of acute illness.'
Based on the above information and your assessment, which of the following most accurately represents the patient's nutritional status?
Mild protein calorie malnutrition
No nutritional deficiency
Other
[place] Criteria ([facility] Hospitalist 2017)
2 or more criteria must be present for either
non severe or severe malnutrition
Note that the criteria differs related to the
presence of an acute or chronic illness
Acute Illness
Energy Intake Non Severe: <75% for >7 days
Severe: <50% for >5 days
Weight Loss Non Severe: 1-2% over 1 week
5% over 1 month
7.5% over 3 months
1 year N/A
Severe: >2% over 1 week
>5% over 1 month
>7.5% over 3 months
1 year N/A
Use of terms such as suspected, likely, concern for, or probable (associated with a specific diagnosis that is being evaluated, monitored, or treated as if it exists) are acceptable and can be coded in the inpatient setting, when documented at the
time of discharge.
Thank you,
Tonya Sheikh RN, BSN
CDI Specialist
Available via [place] [employer]
Please use your independent medical judgment in providing your response.
--- NOTE | 2024-01-17 13:10 | W.PN.HOSP.TC ---
Today's Communication/Plan
-
await gastrograffin enema and next steps
Assessment / Plan
Assessment / Plan
pt is a 63 year old male
Sigmoid Stricture likely from Diverticular Disease--likely constipation due to stricture too--apprec CRS and s/p gastrograffin enema, results pending- CT imaging and history suggest inflammation and resultant stricture in the sigmoid region with
partial obstruction, pain, constipation, etc.--cont zosyn- Differential includes chronic sigmoid diverticulitis versus underlying malignancy - Patient would likely benefit from eventual colonoscopy if this can be arranged with his underlying lung
disease.
Severe COPD--Chronic Hypoxemic Respiratory Failure-- - Patient states that he typically uses 6-8 lpm of supplemental O2 at home- Continue current inhaler regimen. Albuterol nebs PRN- Continue medications (Daliresp / Theophylline)--apprec
pulmonary--pt high risk for any procedures
ASCVD- Stable. No complaints of chest pain- Patient is not currently on ASA despite history of coronary stenting x 2.- Will start low dose ASA- Continue statin.
Chronic Pain Syndrome with Chronic Opioid Dependence - Followed by Dr. Dinero- Med regimen confirmed with PDMP - Continue usual regimen without changes and follow-up with usual Pain Med doc after discharge - Suspect that chronic opioid use has
contributed to chronic constipation and resultant sigmoid changes.
Normocytic Anemia--likely of chronic disease--not iron deficient
mild protein calorie malnutrition of acute illness--apprec dietary
DVT prophylaxis: Lovenox
Code Status: Full
Anticipated Discharge: > 48 hours
Subjective/Interval History
-
Date of Service: January 17, 2024
Objective Data
-
Labs:
Laboratory Results
01/17/24 01/17/24
03:53 07:49
WBC 6.5
Hgb 8.0 L
Hct 25.8 L
Plt Count 338
HCO3 33.3 H
Sodium 137
Potassium 4.3
Chloride 99
Carbon Dioxide 34 H
BUN 12
Creatinine 0.8
Glucose 91
Calcium 8.6
Total Bilirubin 0.3
AST 16 L
ALT < 10
Alkaline Phosphatase 65
Vital Signs:
Vital Signs
Temp Pulse Resp BP Pulse Ox
98.2 F 83 17 127/63 97
01/17/24 11:00 01/17/24 11:00 01/17/24 11:00 01/17/24 11:00 01/17/24 11:00
I&O
01/16/24 01/17/24 01/18/24
06:59 06:59 06:59
Intake Total 480 / 480 1989 / 1989
Output Total 250 / 250 200 / 200
Balance 230 / 230 1790 / 1790
--- NOTE | 2024-01-17 13:22 | CM ---
Patient seen at bedside with physician pending results of testing this am. CM will continue to follow for discharge planning needs.
Plan; home with VN vs SNF pending functional needs
[2024-01-17] MEDS: LOVENOX 40 MG SC (17:34)
[2024-01-17] MEDS: LIPITOR 40 MG PO (17:34)
[2024-01-17] MEDS: SENOKOT 17.2 MG PO (19:46)
[2024-01-17] MEDS: ATIVAN 1 MG PO (22:11)
[2024-01-18] MEDS: FIORICET 1 TAB PO ×4 (00:25→17:07)
[2024-01-18] MEDS: DILAUDID 1 MG IV ×2 (00:25→06:27)
[2024-01-18] MEDS: ZOSYN 50 IV ×4 (00:25→17:09)
[2024-01-18 03:18] VITALS: BP 139/74
[2024-01-18 07:35] VITALS: BP 123/61
[2024-01-18] MEDS: LOW STRENGTH ASPIRIN 81 MG PO (07:38)
[2024-01-18] MEDS: IMDUR (EXTENDED RELEASE) 60 MG PO ×2 (07:38→20:41)
[2024-01-18] MEDS: COLACE 100 MG PO ×2 (07:39→20:41)
[2024-01-18] MEDS: DALIRESP 500 MCG PO (07:39)
[2024-01-18] MEDS: CARDIZEM CD 180 MG PO (07:39)
[2024-01-18] MEDS: UNIPHYL 600 MG PO (07:39)
[2024-01-18] MEDS: OXYCONTIN (CONTROLLED RELEASE) 20 MG PO ×2 (07:39→20:49)
[2024-01-18] MEDS: MIRALAX 17 GRAMS PO (07:40)
[2024-01-18 07:45] LABS: Hematocrit 25.7 % (39.0-52.0); Hemoglobin 8.2 g/dL (13.0-18.0); Mean Corp Hgb Conc. 31.9 g/dL (33.0-37.0); Mean Corpuscular Hgb 26.4 pg (27.0-31.0); Mean Corpuscular Volume 82.6 fL (80.0-94.0); Mean Platelet Volume 9.4 fL (7.4-10.4); Platelet Count 343 10^3/uL (130-400); Red Blood Cell Count 3.11 10^6/uL (4.70-6.10); Red Cell Dist. Width 14.1 % (11.5-14.5); White Blood Cell Count 6.5 10^3/uL (4.8-10.8)
[2024-01-18] MEDS: SYMBICORT 160/4.5 MCG INHALER 2 PUFF INH ×2 (07:51→19:48)
[2024-01-18] MEDS: SPIRIVA RESPIMAT 2.5 MCG 2 PUFF INH (07:51)
[2024-01-18] MEDS: ZOFRAN 4 MG IV ×2 (07:56→20:40)
[2024-01-18 08:18] LABS: Blood Urea Nitrogen 8 mg/dl (9-20); Calcium 8.6 mg/dl (8.4-10.2); Carbon Dioxide 32 mmol/L (22-30); Chloride 101 mmol/L (98-107); Estimated Creatinine Clearance 93 ml/min; Glucose 85 mg/dl (70-99); Potassium 3.8 mmol/L (3.5-5.1); Sodium 137 mmol/L (135-145); eGFR > 60.00
--- NOTE | 2024-01-18 09:47 | W.PN.PUL3 ---
Today's Communication / Plan
-
Continue outpatient pulmonary regimen
Consider NIV
Consider weaning off theophylline
The above can be done by his outpatient dairy consultant at [place]
We will sign off. Please call with questions
Assessment
-
63-year-old male with history of severe COPD on home oxygen, can use up to 8 to 10 L at times, diagnosed in 2011 on maintenance inhaler therapy of Spiriva/Symbicort, presents with few months of waxing waning abdominal pain, worsened found to have
severe diverticulitis. We are asked to comment on his pulmonary process
Acute diverticulitis
Sigmoid stricture suggestive
Partial obstruction
Severe COPD
6 to 8 L of oxygen at home
On oxygen therapy since 2011 emphysema per abdominal imaging
Anemia, admission hemoglobin 9.9
Elevated serum bicarbonate
chronic compensated hypercarbia, pCO2 55
Failed NIV many years ago
Conditions present prior to admission
History of left pneumothorax requiring chest tube 2020?
[facility] at [facility]
Coronary disease, history of stent
Details unclear
Chronic pain syndrome on chronic opioids
Follows pain management
History of hepatitis, 1980s
Was in the [employer], states he got hepatitis from the water in [place]
Family history of cirrhosis, heart disease
[id number] history of smoking, quit 2014
Plan/recommendations
At this time, patient appears to be comfortable, however has severe COPD on 6 to 8 L at home. He was placed on 4 L back in 2011
He is functional at home, takes care of himself, completes ADLs. Bumped up to 10 L when needed
Can walk up to 30 yards without having to stop to catch his breath
History of coronary disease noted
Sees pulmonary at [place] ([place])
ABG reviewed. Chronic compensated hypercapnia
Chest x-ray reviewed. No acute findings, mildly elevated left hemidiaphragm
Moving forward
He appears to be at his baseline from a lung standpoint. No wheezing on today's exam. Elevated serum bicarbonate is noted
ABG pCO2 55
He is on optimal medical regimen for COPD including Symbicort/Spiriva/Roflumilast/theophylline. Not sure that theophylline is indicated to continue but will not make any changes at this time
Uses albuterol as needed
Continue with current regimen at this time
Patient would potentially benefit from nocturnal ventilation, NIV at home. He apparently tried CPAP/BiPAP many years ago, could not tolerate, did not feel it helped him also recommended weaning off theophylline. Not sure whether this is Helping
his underlying lung disease. I encouraged him to discuss this with his dairy consultant
This will be deferred to his outpatient dairy consultant
There is no indication for steroids at this time
Check baseline EKG, ordered multiple times, not completed
This will be deferred to primary service
Clearly he would be high risk for any surgical intervention given his underlying lung disease
Status post barium enema. Continue with management per colorectal surgery
Discussed how abdominal pain can have significant negative effect on pulmonary status. If he were to have a colostomy and have any complications, he would be at high risk for prolonged mechanical ventilation, worsening respiratory status
Disposition efforts
He will follow-up with his outpatient pulmonary physician in [place]
We will sign off. Please call with questions
Subjective Data
-
Date of Service:
Date of Service: January 18, 2024
Subjective:
Patient is without any changes in respiratory symptoms. He did run out of oxygen while down waiting for study, had significant symptoms. Improved upon resumption of oxygen therapy. Otherwise is hungry, has been cleared to eat
Objective Data
Data Reviewed
Vital Signs / I&O / Oxygen:
Vital Signs
Temp Pulse Resp BP Pulse Ox
98.3 F 79 16 123/61 100
01/18/24 07:35 01/18/24 07:57 01/18/24 07:57 01/18/24 07:35 01/18/24 07:57
Intake and Output
08/14/24 08/15/24 08/16/24
06:59 06:59 06:59
Intake Total 1989 / 1989 2260 / 2260
Output Total 200 / 200 375 / 375
Balance 1790 / 1790 1884 / 188
SaO2 100
Nasal Cannula flow liters per 7
minute
Physical Exam
General: Comfortable
HEENT: Normocephalic
Cardiovascular: S1-S2, Regular Rhythm, Murmur (n) and Rub (n)
Respiratory: Wheeze (n), Crackles (n), Rhonchi (n), Non-Labored Respirations and Other (Bronchial, decreased)
GI: Soft, Non Distended and Tender
Neurology: Awake, Alert and No Motor Deficits
Skin: Cyanosis (n), Jaundice (n) and Rash (n)
Labs/Micro/Reports
Lab Data
01/18/24 07:20
01/18/24 07:20
--- NOTE | 2024-01-18 10:54 | W.PN.CRS1 ---
Today's Communication / Plan
-
Full liquid diet with Ensure
No plans for surgery
Assessment/Plan
-
Assessment: Probable sigmoid diverticulitis with a possible element of a stricture and partial obstruction
Plan:
-No plans for surgical intervention at this time
-Advance diet to full's with Ensure
-Continue antibiotics
-Continue bowel laxatives
-Will need eventual colonoscopy as an outpatient
Subjective Data
Subjective Data
Date of Service: January 18, 2024
Patient states he is much improved after his Gastrografin enema yesterday. He actually got some sleep last night. He did eat yogurt yesterday. He was a little nauseous this morning but he attributes this to taking all of his morning medications
at once. He is very hungry. His pain is now 4 out of 10 which is improved. He is having still a lot of bowel movements. He has flatus.
Objective Data
-
Vital Signs
Temp Pulse Resp BP Pulse Ox
98.3 F 79 16 123/61 100
01/18/24 07:35 01/18/24 07:57 01/18/24 07:57 01/18/24 07:35 01/18/24 07:57
Intake & Output
01/17/24 01/18/24 01/19/24
06:59 06:59 06:59
Intake Total 1989 / 1989 2260 / 2260
Output Total 200 / 200 375 / 375
Balance 1790 / 1790 1885 / 1885
Intake:
Oral fluids 690 / 690 960 / 960
IV fluids (Total) 1200 / 1200 1200 / 1200
IV piggybacks 100 / 100 100 / 100
Output:
Urine, Voided 200 / 200 375 / 375
Other:
Number of approximated MODERATE 1 2
amounts of urine
Lab Results
01/18/24 07:20
01/18/24 07:20
Physical Exam
-
General: No Acute Distress and AOx3
Abdomen: Soft, Non Distended and Non Tender
Skin: Warm and Dry
--- NOTE | 2024-01-18 10:56 | CM ---
Addendum entered by Clau Bean 01/18/24 13:54:
patient accepted by [facility] for MERYL
Addendum entered by Clau Bean 01/18/24 11:30:
referral sent awaiting call back
Original Note:
Patient seen at bedside with physician. Patient stated that he was planning to go home with his fiance and home health care with [facility]. CM will send referral to [facility]. CM will continue to follow for discharge planning needs.
Plan; home with VN/Home health care pending acceptance at [facility]
[2024-01-18] MEDS: ROXICODONE 20 MG PO ×2 (11:17→17:11)
[2024-01-18 11:23] VITALS: BP 133/70
--- NOTE | 2024-01-18 11:33 | W.PN.HOSP.TC ---
Today's Communication/Plan
-
diet advancing per CRS
Assessment / Plan
Assessment / Plan
pt is a 63 year old male
Sigmoid Stricture likely from Diverticular Disease--likely constipation due to stricture too--apprec CRS and s/p gastrograffin enema, results with edema- CT imaging and history suggest inflammation and resultant stricture in the sigmoid region with
partial obstruction, pain, constipation, etc.--cont zosyn--likely chronic sigmoid diverticulitis
Severe COPD--Chronic Hypoxemic Respiratory Failure-- - Patient states that he typically uses 6-8 lpm of supplemental O2 at home- Continue current inhaler regimen. Albuterol nebs PRN- Continue medications (Daliresp / Theophylline)--apprec
pulmonary--pt high risk for any procedures
ASCVD- Stable. No complaints of chest pain- Patient is not currently on ASA despite history of coronary stenting x 2.- Will start low dose ASA- Continue statin.
Chronic Pain Syndrome with Chronic Opioid Dependence - Followed by Dr. Dinero- Med regimen confirmed with PDMP - Continue usual regimen without changes and follow-up with usual Pain Med doc after discharge - Suspect that chronic opioid use has
contributed to chronic constipation and resultant sigmoid changes.
Normocytic Anemia--likely of chronic disease--not iron deficient
mild protein calorie malnutrition of acute illness--apprec dietary
DVT prophylaxis: Lovenox
Code Status: Full
Anticipated Discharge: > 48 hours
Subjective/Interval History
-
Date of Service: January 18, 2024
pt moving bowels
Objective Data
-
Labs:
Laboratory Results
01/18/24
07:20
WBC 6.5
Hgb 8.2 L
Hct 25.7 L
Plt Count 343
Sodium 137
Potassium 3.8
Chloride 101
Carbon Dioxide 32 H
BUN 8 L
Creatinine 0.8
Glucose 85
Calcium 8.6
Vital Signs:
max temp for 24 hours
01/17/24
07:00 01/18/24
03:18
Temp 98.4 F 98.4 F
Vital Signs
Temp Pulse Resp BP Pulse Ox
98.2 F 96 16 133/70 100
01/18/24 11:23 01/18/24 11:23 01/18/24 11:23 01/18/24 11:23 01/18/24 11:23
I&O
01/17/24 01/18/24 01/19/24
06:59 06:59 06:59
Intake Total 1989 / 1989 2260 / 2260
Output Total 200 / 200 375 / 375
Balance 1789 / 1790 1884 / 1884
Review of Systems
-
All other systems: Reviewed and negative
Physical Exam
-
General: Well Developed, Well Nourished and No Apparent Distress
HEENT: Normocephalic and Atraumatic
Respiratory: Clear to Auscultation; Negative Wheezes or Rhonchi
Cardiac: Regular Rhythm and S1/S2; Negative Murmur
GI: Soft, Nondistended, Normal Bowel Sounds and Tender (LLQ)
Musculoskeletal: No Clubbing, No Cyanosis and No Edema
Neuro: Awake
Psych: Calm
[2024-01-18] MEDS: FLOMAX 0.4 MG PO (13:21)
[2024-01-18 15:25] VITALS: BP 127/73
[2024-01-18] MEDS: LIPITOR 40 MG PO (17:08)
[2024-01-18] MEDS: LOVENOX 40 MG SC (17:08)
[2024-01-18 19:41] VITALS: BP 125/78
[2024-01-18] MEDS: SENOKOT 17.2 MG PO (20:41)
[2024-01-18 23:19] VITALS: BP 132/74
[2024-01-19] MEDS: ZOSYN 50 IV ×4 (00:10→17:17)
[2024-01-19] MEDS: ROXICODONE 20 MG PO ×3 (00:19→23:01)
[2024-01-19] MEDS: ATIVAN 1 MG PO ×2 (00:20→23:00)
[2024-01-19 03:39] VITALS: BP 121/81
[2024-01-19 05:51] VITALS: BMI 22.4
[2024-01-19] MEDS: SPIRIVA RESPIMAT 2.5 MCG 2 PUFF INH (07:09)
[2024-01-19] MEDS: SYMBICORT 160/4.5 MCG INHALER 2 PUFF INH ×2 (07:09→18:16)
[2024-01-19 07:33] VITALS: BP 146/99
[2024-01-19] MEDS: OXYCONTIN (CONTROLLED RELEASE) 20 MG PO ×2 (07:54→19:43)
[2024-01-19] MEDS: CARDIZEM CD 180 MG PO (07:54)
[2024-01-19] MEDS: DALIRESP 500 MCG PO (07:54)
[2024-01-19] MEDS: MIRALAX 17 GRAMS PO (07:54)
[2024-01-19] MEDS: UNIPHYL 600 MG PO (07:55)
[2024-01-19] MEDS: IMDUR (EXTENDED RELEASE) 60 MG PO ×2 (07:55→19:43)
[2024-01-19] MEDS: FLOMAX 0.4 MG PO (07:55)
[2024-01-19] MEDS: COLACE 100 MG PO ×2 (07:55→19:43)
[2024-01-19] MEDS: LOW STRENGTH ASPIRIN 81 MG PO (07:55)
[2024-01-19] MEDS: FIORICET 1 TAB PO ×2 (08:07→19:44)
[2024-01-19 08:17] LABS: Blood Urea Nitrogen 8 mg/dl (9-20); Calcium 8.9 mg/dl (8.4-10.2); Carbon Dioxide 31 mmol/L (22-30); Chloride 97 mmol/L (98-107); Estimated Creatinine Clearance 81 ml/min; Glucose 93 mg/dl (70-99); Magnesium 2.3 mg/dl (1.6-2.3); Potassium 3.8 mmol/L (3.5-5.1); Sodium 136 mmol/L (135-145); eGFR > 60.00
[2024-01-19 08:18] LABS: Hematocrit 27.6 % (39.0-52.0); Hemoglobin 8.8 g/dL (13.0-18.0); Mean Corp Hgb Conc. 31.9 g/dL (33.0-37.0); Mean Corpuscular Hgb 26.7 pg (27.0-31.0); Mean Corpuscular Volume 83.9 fL (80.0-94.0); Mean Platelet Volume 9.5 fL (7.4-10.4); Platelet Count 423 10^3/uL (130-400); Red Blood Cell Count 3.29 10^6/uL (4.70-6.10); Red Cell Dist. Width 14.1 % (11.5-14.5); White Blood Cell Count 8.9 10^3/uL (4.8-10.8)
[2024-01-19 10:54] VITALS: BP 123/78
--- NOTE | 2024-01-19 11:39 | W.PN.CRS1 ---
Today's Communication / Plan
-
Continue on fulls today given some abdominal pain
Fleet enema as needed
Assessment/Plan
-
Assessment: Probable sigmoid diverticulitis with a possible element of a stricture and partial obstruction
Plan:
-No plans for surgical intervention at this time
-Continue diet to full's with Ensure given abdominal pain this a.m.
-Continue antibiotics
-Continue bowel laxatives. Will add Fleet enemas as needed.
-Will need eventual colonoscopy as an outpatient
Subjective Data
Subjective Data
Date of Service: January 19, 2024
Patient states he is sore this morning. He had a rough overnight. He now has some mild abdominal pain. He still small bowel this. He is urinating okay. Denies nausea or vomiting
Objective Data
-
Vital Signs
Temp Pulse Resp BP Pulse Ox
98.1 F 81 16 123/78 99
01/19/24 10:54 01/19/24 10:54 01/19/24 10:54 01/19/24 10:54 01/19/24 10:54
Intake & Output
01/18/24 01/19/24 01/20/24
06:59 06:59 06:59
Intake Total 2260 / 2260 1960 / 1960
Output Total 375 / 375 1550 / 1550
Balance 1885 / 1885 410 / 410
Intake:
Oral fluids 960 / 960 1860 / 1860
IV fluids (Total) 1200 / 1200
IV piggybacks 100 / 100 100 / 100
Output:
Urine, Voided 375 / 375 1550 / 1550
Other:
Number of approximated MODERATE 2 3
amounts of urine
Lab Results
01/19/24 07:05
01/19/24 07:05
Physical Exam
-
General: No Acute Distress and AOx3
Abdomen: Soft, Non Distended and Tender (Mild left lower quadrant)
Skin: Warm and Dry
[2024-01-19] MEDS: DILAUDID 1 MG IV ×2 (11:43→17:17)
--- NOTE | 2024-01-19 14:19 | W.PN.HOSP.TC ---
Today's Communication/Plan
-
advance diet as tolerated
Assessment / Plan
Assessment / Plan
pt is a 63 year old male
Sigmoid Stricture likely from Diverticular Disease--likely constipation due to stricture too--apprec CRS and s/p gastrograffin enema, results with edema- CT imaging and history suggest inflammation and resultant stricture in the sigmoid region with
partial obstruction, pain, constipation, etc.--cont zosyn--likely chronic sigmoid diverticulitis --advance diet as tolerated
Severe COPD--Chronic Hypoxemic Respiratory Failure-- - Patient states that he typically uses 6-8 lpm of supplemental O2 at home- Continue current inhaler regimen. Albuterol nebs PRN- Continue medications (Daliresp / Theophylline)--apprec
pulmonary--pt high risk for any procedures
ASCVD- Stable. No complaints of chest pain- Patient is not currently on ASA despite history of coronary stenting x 2.- Will start low dose ASA- Continue statin.
Chronic Pain Syndrome with Chronic Opioid Dependence - Followed by Dr. Dinero- Med regimen confirmed with PDMP - Continue usual regimen without changes and follow-up with usual Pain Med doc after discharge - Suspect that chronic opioid use has
contributed to chronic constipation and resultant sigmoid changes.
Normocytic Anemia--likely of chronic disease--not iron deficient
mild protein calorie malnutrition of acute illness--apprec dietary
DVT prophylaxis: Lovenox
Code Status: Full
Anticipated Discharge: 24 - 48 hours
Subjective/Interval History
-
Date of Service: January 19, 2024
pt c/o significant pain--will not let me touch/examine him--(although was sound asleep when I came in)
Objective Data
-
Labs:
Laboratory Results
01/19/24
07:05
WBC 8.9
Hgb 8.8 L
Hct 27.6 L
Plt Count 423 H D
Sodium 136
Potassium 3.8
Chloride 97 L
Carbon Dioxide 31 H
BUN 8 L
Creatinine 0.9
Glucose 93
Calcium 8.9
Vital Signs:
max temp for 24 hours
01/18/24
19:41
Temp 98.9 F
Vital Signs
Temp Pulse Resp BP Pulse Ox
98.1 F 81 16 123/78 99
01/19/24 10:54 01/19/24 10:54 01/19/24 10:54 01/19/24 10:54 01/19/24 10:54
I&O
01/18/24 01/19/24 01/20/24
06:59 06:59 06:59
Intake Total 2260 / 2260 1960 / 1960
Output Total 375 / 375 1550 / 1550
Balance 1885 / 1885 410 / 410
Review of Systems
-
All other systems: Reviewed and negative
Abdomen/GI: Reports Abdominal Pain
Physical Exam
-
General: Well Developed, Well Nourished and No Apparent Distress
HEENT: Normocephalic and Atraumatic
Respiratory: Clear to Auscultation; Negative Wheezes or Rhonchi
Cardiac: Regular Rhythm and S1/S2; Negative Murmur
GI: Soft, Nontender, Nondistended and Normal Bowel Sounds
Musculoskeletal: No Clubbing, No Cyanosis and No Edema
--- NOTE | 2024-01-19 15:01 | CM ---
Patient seen at bedside, complaining of pain, patient want s
--- NOTE | 2024-01-19 15:03 | CM ---
Patient seen at bedside, with physician. Patient complaining of pain. Patient plan is to go home with [facility]. Patient currently is on full liquid. CM will continue to follow for discharge planning needs.
Plan; home with [facility]; needs referral to [facility]
[2024-01-19 15:17] VITALS: BP 137/83
[2024-01-19] MEDS: ZOFRAN 4 MG IV (17:17)
[2024-01-19] MEDS: LIPITOR 40 MG PO (17:17)
[2024-01-19] MEDS: LOVENOX 40 MG SC (17:18)
[2024-01-19 20:15] VITALS: BP 103/65
[2024-01-19] MEDS: SENOKOT 17.2 MG PO (21:27)
[2024-01-19 23:26] VITALS: BP 138/82
[2024-01-20] VITALS (8 sets, daily range): BP systolic 103–140; BP diastolic 65–81; PULSE 77–105; O2SAT 98–99; BMI 22.2
[2024-01-20] MEDS: ZOSYN 50 IV ×4 (00:35→17:38)
[2024-01-20] MEDS: ROXICODONE 20 MG PO ×3 (03:42→17:37)
[2024-01-20 07:34] LABS: Hematocrit 29.3 % (39.0-52.0); Hemoglobin 9.2 g/dL (13.0-18.0); Mean Corp Hgb Conc. 31.4 g/dL (33.0-37.0); Mean Corpuscular Hgb 26.7 pg (27.0-31.0); Mean Corpuscular Volume 84.9 fL (80.0-94.0); Mean Platelet Volume 9.8 fL (7.4-10.4); Platelet Count 458 10^3/uL (130-400); Red Blood Cell Count 3.45 10^6/uL (4.70-6.10); Red Cell Dist. Width 14.6 % (11.5-14.5); White Blood Cell Count 9.4 10^3/uL (4.8-10.8)
[2024-01-20] MEDS: DALIRESP 500 MCG PO (07:42)
[2024-01-20] MEDS: FLOMAX 0.4 MG PO (07:42)
[2024-01-20] MEDS: UNIPHYL 600 MG PO (07:42)
[2024-01-20] MEDS: COLACE 100 MG PO ×2 (07:42→20:25)
[2024-01-20] MEDS: IMDUR (EXTENDED RELEASE) 60 MG PO ×2 (07:42→20:25)
[2024-01-20] MEDS: LOW STRENGTH ASPIRIN 81 MG PO (07:43)
[2024-01-20] MEDS: OXYCONTIN (CONTROLLED RELEASE) 20 MG PO ×2 (07:43→20:25)
[2024-01-20] MEDS: MIRALAX 17 GRAMS PO (07:43)
[2024-01-20] MEDS: CARDIZEM CD 180 MG PO (07:48)
[2024-01-20] MEDS: SPIRIVA RESPIMAT 2.5 MCG 2 PUFF INH (08:16)
[2024-01-20] MEDS: SYMBICORT 160/4.5 MCG INHALER 2 PUFF INH ×2 (08:17→18:10)
--- NOTE | 2024-01-20 09:49 | W.PN.HOSP.TC ---
Today's Communication/Plan
-
advance diet
wean pain meds
Assessment / Plan
Assessment / Plan
pt is a 63 year old male
Sigmoid Stricture likely from Diverticular Disease--likely constipation due to stricture too--apprec CRS and s/p gastrograffin enema, results show edema- CT imaging and history suggest inflammation and resultant stricture in the sigmoid region with
partial obstruction, pain, constipation, etc.--cont zosyn--likely chronic sigmoid diverticulitis --advance diet as tolerated
Severe COPD--Chronic Hypoxemic Respiratory Failure-- - Patient states that he typically uses 6-8 lpm of supplemental O2 at home- Continue current inhaler regimen. Albuterol nebs PRN- Continue medications (Daliresp / Theophylline)--apprec
pulmonary--pt high risk for any procedures
ASCVD- Stable. No complaints of chest pain- Patient is not currently on ASA despite history of coronary stenting x 2.- Will start low dose ASA- Continue statin.
Chronic Pain Syndrome with Chronic Opioid Dependence - Followed by Dr. Dinero- Med regimen confirmed with PDMP - follow-up with usual Pain Med doc after discharge - Suspect that chronic opioid use has contributed to chronic constipation and
resultant sigmoid changes--need to start converting off IV dilaudid to oral meds
Normocytic Anemia--likely of chronic disease--not iron deficient
mild protein calorie malnutrition of acute illness--apprec dietary
DVT prophylaxis: Lovenox
Code Status: Full
Anticipated Discharge: > 48 hours
Subjective/Interval History
-
Date of Service: January 20, 2024
pt c/o pain
Objective Data
-
Labs:
Laboratory Results
01/20/24
06:12
WBC 9.4
Hgb 9.2 L
Hct 29.3 L
Plt Count 458 H
Vital Signs:
max temp for 24 hours
01/20/24
03:17
Temp 99.0 F
Vital Signs
Temp Pulse Resp BP Pulse Ox
98.6 F 112 18 122/71 100
01/20/24 07:31 01/20/24 08:20 01/20/24 08:20 01/20/24 07:31 01/20/24 08:20
I&O
01/19/24 01/20/24 01/21/24
06:59 06:59 06:59
Intake Total 1960 / 1959 1660 / 1660
Output Total 1550 / 1550 200 / 200
Balance 410 / 410 1460 / 1460
Review of Systems
-
All other systems: Reviewed and negative
Physical Exam
-
General: Well Developed, Well Nourished and No Apparent Distress
HEENT: Normocephalic, Atraumatic and Oxygen
Respiratory: Clear to Auscultation; Negative Wheezes or Rhonchi
Cardiac: Regular Rhythm and S1/S2; Negative Murmur
GI: Soft, Nondistended, Normal Bowel Sounds and Tender (LLQ)
Musculoskeletal: No Clubbing, No Cyanosis and No Edema
Neuro: Awake and Alert
[2024-01-20] MEDS: ZOFRAN 4 MG IV (11:31)
--- NOTE | 2024-01-20 16:39 | W.PN.CRS1 ---
Today's Communication / Plan
-
Low residue diet
Fleet enema as needed
Assessment/Plan
-
Assessment: Probable sigmoid diverticulitis with a possible element of a stricture and partial obstruction
Plan:
-No plans for surgical intervention at this time
-Will advance to low residue diet and encouraged him to go slow and drink plenty of fluids.
-Continue antibiotics
-Continue bowel laxatives. Will add Fleet enemas as needed.
-Will need eventual colonoscopy as an outpatient
Subjective Data
Subjective Data
Date of Service: January 20, 2024
Currently on full liquids and tolerating them well. He does have some intermittent discomfort in addition to his chronic pain. He is passing flatus and having small bowel movements.
Objective Data
-
Vital Signs
Temp Pulse Resp BP Pulse Ox
98.2 F 105 16 118/81 100
01/20/24 15:14 01/20/24 15:14 01/20/24 15:14 01/20/24 15:14 01/20/24 15:14
Intake & Output
01/19/24 01/20/24 01/21/24
06:59 06:59 06:59
Intake Total 1960 / 1960 1660 / 1660
Output Total 1550 / 1550 200 / 200
Balance 410 / 410 1460 / 1460
Intake:
Oral fluids 1860 / 1860 1560 / 1560
IV piggybacks 100 / 100 100 / 100
Output:
Urine, Voided 1550 / 1550 200 / 200
Other:
Number of approximated MODERATE 3 2
amounts of urine
Number of approximated LARGE 3
amounts of urine
Lab Results
01/20/24 06:12
01/19/24 07:05
Physical Exam
-
General: No Acute Distress
Abdomen: Soft, Non Distended and Non Tender
Extremities: No Calf Tenderness
[2024-01-20] MEDS: LIPITOR 40 MG PO (17:38)
[2024-01-20] MEDS: LOVENOX 40 MG SC (17:38)
[2024-01-20] MEDS: FIORICET 1 TAB PO (17:45)
[2024-01-20] MEDS: SENOKOT 17.2 MG PO (21:44)
[2024-01-20] MEDS: ATIVAN 1 MG PO (21:45)
[2024-01-20] MEDS: DILAUDID 1 MG IV (22:20)
[2024-01-21] MEDS: ZOSYN 50 IV ×5 (00:41→22:59)
[2024-01-21] MEDS: FIORICET 1 TAB PO ×2 (00:41→18:03)
[2024-01-21] MEDS: ROXICODONE 20 MG PO ×4 (03:00→22:55)
[2024-01-21 03:12] VITALS: BP 109/70
[2024-01-21] MEDS: DILAUDID 1 MG IV (05:41)
[2024-01-21 06:00] VITALS: BMI 22.1
[2024-01-21] MEDS: SPIRIVA RESPIMAT 2.5 MCG 2 PUFF INH (07:32)
[2024-01-21] MEDS: SYMBICORT 160/4.5 MCG INHALER 2 PUFF INH ×2 (07:32→19:31)
[2024-01-21 07:36] VITALS: BP 121/70
[2024-01-21] MEDS: OXYCONTIN (CONTROLLED RELEASE) 20 MG PO ×2 (10:01→21:07)
[2024-01-21] MEDS: MIRALAX 17 GRAMS PO (10:01)
[2024-01-21] MEDS: CARDIZEM CD 180 MG PO (10:01)
[2024-01-21] MEDS: UNIPHYL 600 MG PO (10:01)
[2024-01-21] MEDS: FLOMAX 0.4 MG PO (10:01)
[2024-01-21] MEDS: DALIRESP 500 MCG PO (10:02)
[2024-01-21] MEDS: IMDUR (EXTENDED RELEASE) 60 MG PO ×2 (10:02→21:06)
[2024-01-21] MEDS: COLACE 100 MG PO ×2 (10:02→21:06)
[2024-01-21] MEDS: ZOFRAN 4 MG IV ×2 (10:02→21:18)
[2024-01-21] MEDS: LOW STRENGTH ASPIRIN 81 MG PO (10:02)
--- NOTE | 2024-01-21 10:40 | W.PN.HOSP.TC ---
Today's Communication/Plan
-
d/c tomorrow?
Assessment / Plan
Assessment / Plan
pt is a 63 year old male
Sigmoid Stricture likely from Diverticular Disease--likely constipation due to stricture too--apprec CRS and s/p gastrograffin enema, results show edema- CT imaging and history suggest inflammation and resultant stricture in the sigmoid region with
partial obstruction, pain, constipation, etc.--cont zosyn--likely chronic sigmoid diverticulitis --tolerating diet, stopped dilaudid IV--home tomorrow?
Severe COPD--Chronic Hypoxemic Respiratory Failure-- - Patient states that he typically uses 6-8 lpm of supplemental O2 at home- Continue current inhaler regimen. Albuterol nebs PRN- Continue medications (Daliresp / Theophylline)--apprec
pulmonary--pt high risk for any procedures
ASCVD- Stable. No complaints of chest pain- Patient is not currently on ASA despite history of coronary stenting x 2.- Will start low dose ASA- Continue statin.
Chronic Pain Syndrome with Chronic Opioid Dependence - Followed by Dr. Dinero- Med regimen confirmed with PDMP - follow-up with usual Pain Med doc after discharge - Suspect that chronic opioid use has contributed to chronic constipation and
resultant sigmoid changes--on oral meds
Normocytic Anemia--likely of chronic disease--not iron deficient
mild protein calorie malnutrition of acute illness--apprec dietary
DVT prophylaxis: Lovenox
Code Status: Full
Anticipated Discharge: Within 24 hours
Subjective/Interval History
-
Date of Service: January 21, 2024
pt moving bowels, tolerating diet
stopped IV dilaudid
Objective Data
-
Vital Signs:
max temp for 24 hours
01/20/24
19:45
Temp 98.7 F
Vital Signs
Temp Pulse Resp BP Pulse Ox
98.1 F 101 20 121/70 99
01/21/24 07:36 01/21/24 07:36 01/21/24 07:36 01/21/24 07:36 01/21/24 07:36
I&O
01/20/24 01/21/24 01/22/24
06:59 06:59 06:59
Intake Total 1660 / 1660 1740 / 1740
Output Total 200 / 200 275 / 275
Balance 1460 / 1460 1465 / 1465
Review of Systems
-
All other systems: Reviewed and negative
Abdomen/GI: Reports Abdominal Pain
Physical Exam
-
General: Well Developed, Well Nourished and No Apparent Distress
HEENT: Normocephalic, Atraumatic and Oxygen
Respiratory: Clear to Auscultation; Negative Wheezes or Rhonchi
Cardiac: Regular Rhythm and S1/S2; Negative Murmur
GI: Soft, Nontender, Nondistended and Normal Bowel Sounds
Musculoskeletal: No Clubbing, No Cyanosis and No Edema
Skin: Warm
Neuro: Awake
[2024-01-21 11:30] VITALS: BP 129/83
[2024-01-21 15:45] VITALS: BP 110/74
[2024-01-21] MEDS: LOVENOX 40 MG SC (18:03)
[2024-01-21] MEDS: LIPITOR 40 MG PO (18:03)
[2024-01-21 19:30] VITALS: BP 108/75
[2024-01-21] MEDS: SENOKOT 17.2 MG PO (21:07)
[2024-01-21] MEDS: ATIVAN 1 MG PO (21:18)
[2024-01-21 23:37] VITALS: BP 122/74
[2024-01-22] VITALS (7 sets, daily range): BP systolic 122–149; BP diastolic 74–100
[2024-01-22] MEDS: FIORICET 1 TAB PO (01:51)
--- NOTE | 2024-01-22 01:58 | PTCARENOTE ---
Pts HR elevated to 160s-170s when getting up to BSC. 100s-120s when in bed. INTERNAL SECURITY MANAGER notified. Pt instructed to not get oob and to call for bed loyd. Pt sinus tach w/ PVCs on monitor. Plab of care ongoing.
[2024-01-22] MEDS: ROXICODONE 20 MG PO ×2 (03:32→16:29)
[2024-01-22] MEDS: ZOSYN 50 IV (06:12)
[2024-01-22] MEDS: SYMBICORT 160/4.5 MCG INHALER 2 PUFF INH ×2 (07:49→20:30)
[2024-01-22] MEDS: SPIRIVA RESPIMAT 2.5 MCG 2 PUFF INH (07:49)
[2024-01-22] MEDS: IMDUR (EXTENDED RELEASE) 60 MG PO (07:56)
[2024-01-22] MEDS: CARDIZEM CD 180 MG PO (07:56)
[2024-01-22] MEDS: UNIPHYL 600 MG PO (07:56)
[2024-01-22] MEDS: OXYCONTIN (CONTROLLED RELEASE) 20 MG PO (07:56)
[2024-01-22] MEDS: DALIRESP 500 MCG PO (07:56)
[2024-01-22] MEDS: LOW STRENGTH ASPIRIN 81 MG PO (07:56)
[2024-01-22] MEDS: COLACE 100 MG PO (07:56)
[2024-01-22] MEDS: MIRALAX 17 GRAMS PO (07:56)
[2024-01-22] MEDS: FLOMAX 0.4 MG PO (07:56)
[2024-01-22] MEDS: OMNIPAQUE 50 ML PO (09:30)
--- NOTE | 2024-01-22 09:31 | CM ---
Patient seen at bedside with physician. Patient requested CM call to his astrid [phone]; Delaney. left for Alexis Baltazar. Patient is for CT scan today and further assessment per physician. Currently therapy is recommending home with
PT/OT. Patient has insisted on discharge home with VN; previously had [facility]. CM will continue to follow for discharge planning needs.
Plan; home with [facility] pending functional assessment and medical treatment plan
--- NOTE | 2024-01-22 09:34 | W.PN.HOSP.TC ---
Today's Communication/Plan
-
plan was for d/c
now IV dilaudid back
going for repeat CT scan
Assessment / Plan
Assessment / Plan
pt is a 63 year old male
Sigmoid Stricture likely from Diverticular Disease--likely constipation due to stricture too--apprec CRS and s/p gastrograffin enema, results show edema- CT imaging and history suggest inflammation and resultant stricture in the sigmoid region with
partial obstruction, pain, constipation, etc.--cont zosyn--likely chronic sigmoid diverticulitis --tolerating diet, stopped dilaudid IV 01/20, now 01/21 c/o worsening pain and tachycardic (concern for opiate WD?), gave dilaudid 0.5mg IV back for
breakthru pain only--CRS repeating CT scan
Severe COPD--Chronic Hypoxemic Respiratory Failure-- - Patient states that he typically uses 6-8 lpm of supplemental O2 at home- Continue current inhaler regimen. Albuterol nebs PRN- Continue medications (Daliresp / Theophylline)--apprec
pulmonary--pt high risk for any procedures
ASCVD- Stable. No complaints of chest pain--Patient is not currently on ASA despite history of coronary stenting x 2--Will start low dose ASA- Continue statin.
Chronic Pain Syndrome with Chronic Opioid Dependence - Followed by Dr. Dinero- Med regimen confirmed with PDMP - follow-up with usual Pain Med doc after discharge - Suspect that chronic opioid use has contributed to chronic constipation and
resultant sigmoid changes--on oral meds
Normocytic Anemia--likely of chronic disease--not iron deficient
mild protein calorie malnutrition of acute illness--apprec dietary
DVT prophylaxis: Lovenox
Code Status: Full
Anticipated Discharge: > 48 hours
Subjective/Interval History
-
Date of Service: January 22, 2024
pt c/o severe pain, wants dilaudid back....
Objective Data
-
Labs:
Laboratory Results
01/22/24
08:48
WBC Pending
Hgb Pending
Hct Pending
Plt Count Pending
Sodium Pending
Potassium Pending
Chloride Pending
Carbon Dioxide Pending
BUN Pending
Creatinine Pending
Glucose Pending
Calcium Pending
Vital Signs:
max temp for 24 hours
01/21/24
23:37
Temp 98.3 F
Vital Signs
Temp Pulse Resp BP Pulse Ox
98.3 F 101 18 139/86 99
01/22/24 07:30 01/22/24 07:52 01/22/24 07:52 01/22/24 07:30 01/22/24 07:52
I&O
01/21/24 01/22/24 01/23/24
06:59 06:59 06:59
Intake Total 1740 / 1740 1880 / 1880
Output Total 275 / 275 120 / 120
Balance 1465 / 1465 1760 / 1760
Review of Systems
-
All other systems: Reviewed and negative
Physical Exam
-
General: Well Developed, Well Nourished and No Apparent Distress
HEENT: Normocephalic, Atraumatic and Oxygen
Respiratory: Clear to Auscultation; Negative Wheezes or Rhonchi
Cardiac: Regular Rhythm, S1/S2 and Tachycardic
GI: Soft, Nondistended, Normal Bowel Sounds and Tender (RLQ)
Musculoskeletal: No Clubbing, No Cyanosis and No Edema
Skin: Warm
Neuro: Awake
Psych: Calm
--- NOTE | 2024-01-22 09:39 | W.PN.CRS1 ---
Today's Communication / Plan
-
As below
Assessment/Plan
-
63-year-old male with PMH of chronic pain syndrome (on chronic opiates), CAD s/p stent, severe COPD (6L home O2), HTN, DJD who presented on 01/15 with abdominal pain, found to have severe diverticulitis with significant mucosal edema, concerning for
partial large bowel obstruction, barium enema confirmed 4 cm of mucosal edema and narrowing, less concerning for malignancy; being treated nonoperatively with IV antibiotics and bowel rest
Tolerating his diet without signs of obstruction; but worsening abdominal pain localized to LLQ
Afebrile, HR 90s�100s, normotensive
Labs pending
� Diverticulitis with partial large bowel obstruction
�No concerning signs for peritonitis or perforation; continue nonoperative management
�Due to increasing pain overnight, will repeat labs and CTAP to assess for worsening versus abscess versus smoldering disease
� Back down to clears for now; if CT unremarkable, will restart regular diet
� Continue DVT PPx with Lovenox
� Continue home meds
� Continue IV Zosyn
� Pain control with Tylenol and oxycodone
� Appreciate hospitalist
Subjective Data
Subjective Data
Date of Service: January 22, 2024
Overnight, he states that his pain got significantly worse in the LLQ
His nausea is baseline, requiring Zofran (takes Zofran at home). Denies vomiting
He is passing flatus and had 2-3 BMs yesterday.
+voiding
Objective Data
-
Vital Signs
Temp Pulse Resp BP Pulse Ox
98.3 F 101 18 139/86 99
01/22/24 07:30 01/22/24 07:52 01/22/24 07:52 01/22/24 07:30 01/22/24 07:52
Intake & Output
01/21/24 01/22/24 01/23/24
06:59 06:59 06:59
Intake Total 174 / 1740 1879 / 1879
Output Total 275 / 275 120 / 120
Balance 1465 / 1465 1759 / 1759
Intake:
Oral fluids 1739 / 1739 1779 / 1779
IV fluids (Total) 100 / 100
Output:
Urine, Voided 275 / 275 120 / 120
Other:
Number of approximated MODERATE 1 1
amounts of urine
Physical Exam
-
General: No Acute Distress and AOx3
HEENT: Grossly Normal
Abdomen: Soft, Non Distended and Tender (Moderately tender in the LLQ with voluntary guarding, no rebound)
Skin: Warm and Dry
[2024-01-22 11:37] LABS: % Basophils 0.3 % (0-2); % Eosinophils 0.2 % (0-6); % Immature Granulocytes 0.7 % (0-0.5); % Lymphocytes 7.6 % (20.5-51.1); % Monocytes 9.4 % (1.7-9.3); % Neutrophils 81.8 % (42.2-75.2); Absolute Basophils 0.1 10^3/uL (0-0.2); Absolute Immature Granulocytes 0.1 10^3/uL (0-0.05); Absolute Lymphocytes 1.3 10^3/uL (1.2-3.4); Absolute Monocytes 1.6 10^3/uL (0.1-0.6); Absolute Neutrophils 13.6 10^3/uL (1.4-6.5); Hematocrit 30.5 % (39.0-52.0); Hemoglobin 9.7 g/dL (13.0-18.0); Mean Corp Hgb Conc. 31.8 g/dL (33.0-37.0); Mean Platelet Volume 9.7 fL (7.4-10.4); Nucleated Red Blood Cells % 0 % (-); Platelet Count 483 10^3/uL (130-400); Red Blood Cell Count 3.59 10^6/uL (4.70-6.10); Red Cell Dist. Width 15.1 % (11.5-14.5); White Blood Cell Count 16.6 10^3/uL (4.8-10.8)
[2024-01-22 11:57] LABS: Blood Urea Nitrogen 15 mg/dl (9-20); Calcium 9.2 mg/dl (8.4-10.2); Carbon Dioxide 33 mmol/L (22-30); Chloride 93 mmol/L (98-107); Estimated Creatinine Clearance 80 ml/min; Glucose 115 mg/dl (70-99); Potassium 3.6 mmol/L (3.5-5.1); Sodium 136 mmol/L (135-145); eGFR > 60.00
[2024-01-22] MEDS: ZOFRAN 4 MG IV (12:43)
[2024-01-22] MEDS: DILAUDID 0.5 MG IV ×2 (12:43→21:01)
--- NOTE | 2024-01-22 13:53 | WOUNDNOTE ---
[facility] RN NOTE: Consult received for left sided stoma marking. Chart reviewed and rationale for stoma marking explained to patient. Abdomen firm, distended. The rectus abdominal muscle was located and care was taken to avoid creases and folds. Patient
made aware that abdominal topography may change after surgery which may make pouching challenging. Patient also made aware that surgeon will make final determination of stoma placement. All questions answered. Will follow up with patient if
colostomy becomes necessary. RN Dom given update.
--- NOTE | 2024-01-22 15:39 | CON.GI ---
Addendum entered and electronically signed by Jacinta Butcher MD 01/22/24 18:30:
I saw and examined the patient.
The [employer]'s note was reviewed and I agree with the note.
Problem list:
-acute diverticulitis w/ suspected stricture/possible partial large bowel obstruction
-CT imaging showing severe colitis of descending, sigmoid colon, rectum, and focal wall thickening of the redundant cecum (possibly reactive)
-Chronic constipation with intermittent diarrhea, likely 2/2 opioids
-chronic nausea
-severe COPD
-Chronic hypoxemic respiratory failure with O2 dependence
-Chronic pain syndrome with opioid dependence
Other pertinent medical history:
-CAD with prior stent
-DDD of cervical spine
-HTN
Recommendations:
Requested by colorectal surgical team for evaluation with worsening abdominal pain/imaging shows worsening colitis. Patient completed antibiotic treatment for diverticulitis with partial large bowel obstruction.
Patient never had prior colonoscopy. Multiple episodes of diverticulitis in the past as well . It is a challenging situation at this point to consider doing flexible sigmoidoscopy currently with severe inflammation/ stricture from recurrent
diverticulitis (risk of perforation) and risk of anesthesia considering his severe COPD. Patient will benefit from colonoscopy in 6 to 8 weeks. will discuss with .
Will do stool studies for infection
Will continue to monitor clinically
Check stool calprotectin/ESR/CRP
Minimize opioid use
Original Note:
Consultation
-
Date/Time Consultation Requested: 01/22/24 @ 14:30
Date/Time Consultation Performed: 01/22/24 @ 15:45
Requesting Provider: Alla Alejandre PA-C
Performing Provider: JOSEFA Hernandez; Dr. Butcher
Reason for Consultation: colitis
Medical History
Chief Complaint / HPI
Chief Complaint: abdominal pain
History of Present Illness:
The patient is a 63-year-old male with a past medical history significant for severe COPD, chronic hypoxic respiratory failure, chronic pain syndrome with opioid dependence, hypertension, degenerative disc disease of the cervical spine, CAD with
prior stents, who presented to the emergency room on 01/15 with complaints of abdominal pain. Upon review of admitting records the patient had been complaining of abdominal pain with left lower quadrant discomfort intermittently over the last few
years, with unrevealing prior w/u. He had acutely worsening pain, evaluated in the ER where he underwent CT imaging of the A/P which showed a long segment of sigmoid colonic severe wall thickening and stranding of fat suspected to represent
diverticulitis, with wall thickening involving the distal descending colon and possible sterile coral colitis given prominent stool. There was no evidence of free air or abscess at that time and he was evaluated by colorectal surgery. He underwent
a barium enema due to concern for possible stricture which showed a very severe submucosal edema throughout the sigmoid and descending colon thought to be secondary to severe acute diverticulitis. There was also a 4 cm in length segment of
nonobstructed luminal narrowing in the sigmoid colon greater than for 75% secondary to the edema with concern for partial obstruction. There is also a large amount of fecal material throughout the ascending, transverse, and descending colon
consistent with severe constipation. He was placed on CLD and continued on antibiotics. There were no plans for surgical intervention and his diet was advanced to low residue. He was started on a bowel regimen and Fleet enemas as needed. Today he
had complaints of worsening abdominal pain located in the left lower quadrant although afebrile and normotensive. His diet was reduced back down to clear liquid diet and a CT scan was repeated which showed severe wall thickening and moderate
inflammatory change adjacent to the distal descending colon, sigmoid colon, and upper rectum, slightly progressed compared to the prior study suggestive of severe colitis. There is no evidence of free fluid or air, or evidence of pelvic abscess.
Other findings as noted below. Noted this morning with leukocytosis with WBC 16,600. He has had no fevers and has remained normotensive but with intermittent tachycardia into the 120s. The patient reports that he was diagnosed with diverticulitis
in July 2022. His reports that since that time he has had about 7 episodes of diverticulitis, sometimes requiring antibiotics and others manage conservatively. They mention he had seen a surgeon at [facility] who did not recommend doing
surgery due to his severe lung disease as he thought to be high risk. He reports that he has continued with left-sided abdominal pain off and on since this past August. He notes that several months ago he did have diverticulitis and was on
antibiotics, but had not been on any antibiotics for the weeks leading up to his admission. He reports that he does take stool softeners 2-3 daily for chronic constipation as he is on chronic narcotics due to chronic pain. He notes that he does
move his bowels daily although sometimes they are smaller stools at other times more formed. Over the last few days he has noted to stools have been more mushy and loose. He denies any melena or hematochezia. He continues with ongoing pain in the
left lower quadrant, which he reports was worsened by the heparin injection yesterday evening. He denies any fevers or chills. He does admit to weight loss of about 29 pounds over the past year unintentionally. He does admit to chronic nausea
with intermittent episodes of vomiting and dry heaves. He notes that he did have an episode of vomiting today thought to be secondary to the CT scan contrast. He denies any prior colonoscopy, but has had a Cologuard and fit test done in the past
several years that have been negative. He denies use of blood thinners or NSAIDs regularly. He denies any recent travel or recent sick contacts. He denies any family history of colorectal cancer or inflammatory bowel disease. He has never had an
EGD.
Past Medical History
Past Medical History: CAD (With prior stenting), COPD (Chronic hypoxemic respiratory failure), GERD, HTN, Hypercholesterolemia, Psychiatric (Anxiety) and Other (Migraines, chronic constipation, chronic pain with opioid dependence, cervical spine DDD)
Past Surgical History: Cardiac (cardiac stent) and Orthopedic (cervical spine fusion (from trauma))
Social History
Tobacco: Former Smoker
Alcohol: None
Drug: Narcotics (chronic opioid dependence (prescribed))
Personal:
Living: With Family
Family History
Family History: Reviewed & Not Pertinent and Other (paternal uncle with colostomy from colon resection 2/2 diverticular disease)
Allergies / Home Medications
Allergy/AdvReac Type Severity Reaction Status Date / Time
Sulfa (Sulfonamide Allergy Intermediate Headache Verified 01/18/24 13:01
Antibiotics) per
patient
many years
ago
�Medication �Instructions �Recorded
albuterol sulfate 90 mcg/actuation 2 puff inhalation R QIDPRN PRN 01/15/24
aerosol inhaler (Ventolin HFA) sob/wheezing
atorvastatin 40 mg tablet 40 mg PO QPM High Cholesterol 01/15/24
baclofen 5 mg tablet 5 mg PO TIDPRN PRN muscle pain 01/15/24
budesonide-formoterol HFA 160 2 puff inhalation R BID 01/15/24
mcg-4.5 mcg/actuation aerosol Lung/Breathing Issues
inhaler (Symbicort)
chlorpheniramine-acetaminophen 2 1 tab PO DAILYPRN PRN congestion 01/15/24
mg-325 mg tablet
diltiazem HCl 180 mg 180 mg PO DAILY Blood Pressure 01/15/24
capsule,extended release 24 hr
docusate sodium 100 mg capsule 100 mg PO DAILY Constipation 01/15/24
isosorbide mononitrate 60 mg 60 mg PO BID Heart 01/15/24
tablet,extended release 24 hr Disease/Condition
lidocaine-prilocaine 2.5 %-2.5 % 1 applic topical TIDPRN PRN back 01/15/24
topical cream pain
lorazepam 1 mg tablet 1 mg PO TIDPRN PRN anxiety 01/15/24
nitroglycerin 0.4 mg sublingual 0.4 mg sublingual [id number] PRN 01/15/24
tablet chest pain
ondansetron HCl 8 mg tablet 8 mg PO BIDPRN PRN nausea/vomiting 01/15/24
oxycodone 20 mg tablet 20 mg PO Q4HPRN PRN moderate pain 01/15/24
oxycodone 20 mg tablet,crush 20 mg PO Q12H Pain 01/15/24
resistant,extended release 12 hr
(OxyContin)
pantoprazole 20 mg tablet,delayed 20 mg PO DAILYPRN PRN gi issues 01/15/24
release
peppermint oil 90 mg 180 mg PO DAILY Supplement 01/15/24
capsule,delayed,extended release
(IBgard)
rimegepant 75 mg disintegrating 75 mg PO Q48H migraine 01/15/24
tablet (Nurtec ODT)
roflumilast 500 mcg tablet 500 mcg PO DAILY Lung/Breathing 01/15/24
Issues
simethicone 80 mg chewable tablet 80 mg PO DAILYPRN PRN bloating 01/15/24
theophylline 600 mg 600 mg PO DAILY Lung/Breathing 01/15/24
tablet,extended release 24 hr Issues
tiotropium bromide 18 mcg capsule 1 cap inhalation R DAILY 01/15/24
with inhalation device (Spiriva Lung/Breathing Issues
with HandiHaler)
kqlgfyvrwc-btwxqcdobvavy-kpsvnqpe 1 cap PO QID PRN migraine 01/16/24
50 mg-300 mg-40 mg capsule
Review of Systems
-
History Source: Patient
Constitutional: Reports Weight Loss
EENT: Reports No Symptoms
Respiratory: Reports Cough (chronic)
Cardiac: Reports No Symptoms
Abdomen/GI: Reports Abdominal Pain, Nausea, Vomiting, Diarrhea and Constipated
: Reports No Symptoms
Musculoskeletal: Reports Other (chronic back pain)
Skin: Reports No Symptoms
Neurological: Reports No Symptoms
Endocrine: Reports No Symptoms
Hematologic/Lymphatic: Reports No Symptoms
Vital Signs
Temp Pulse Resp BP Pulse Ox
98.2 F 115 20 124/82 97
01/22/24 11:50 01/22/24 11:50 01/22/24 11:50 01/22/24 11:50 01/22/24 11:50
Physical Exam
Exam
General: Pain and Other (chronically ill appearing)
HEENT: Normocephalic and Atraumatic
Respiratory: Other (diminished bilaterally, supplemental O2 in place)
Cardiac: S1/S2 and Regular Rhythm
Breast: N/A
GI: Soft, Normal Bowel Sounds, Tender (LLQ, RLQ) and Distended (lower abdominal distention)
Musculoskeletal: No Edema
Skin: Warm and Dry
Neuro: Awake, Alert and Oriented
Psych: Agitated (restless due to pain)
Results
WBC 16.6 10^3/uL (4.8-10.8) H 01/22/24 10:51
Hgb 9.7 g/dL (13.0-18.0) L 01/22/24 10:51
Hct 30.5 % (39.0-52.0) L 01/22/24 10:51
MCV 85.0 fL (80.0-94.0) 01/22/24 10:51
Plt Count 483 10^3/uL (130-400) H 01/22/24 10:51
Absolute Neuts (auto) 13.6 10^3/uL (1.4-6.5) H 01/22/24 10:51
Sodium 136 mmol/L (135-145) 01/22/24 10:51
Potassium 3.6 mmol/L (3.5-5.1) 01/22/24 10:51
Chloride 93 mmol/L (98-107) L 01/22/24 10:51
Carbon Dioxide 33 mmol/L (22-30) H 01/22/24 10:51
BUN 15 mg/dl (9-20) 01/22/24 10:51
Creatinine 0.9 mg/dL (0.7-1.3) 01/22/24 10:51
Calcium 9.2 mg/dl (8.4-10.2) 01/22/24 10:51
Total Bilirubin 0.3 mg/dl (0.2-1.3) 01/17/24 07:49
AST 16 U/L (17-59) L 01/17/24 07:49
ALT < 10 U/L (0-50) 01/17/24 07:49
Alkaline Phosphatase 65 U/L (38-126) 01/17/24 07:49
Diagnostic Image Results:
01/22/24 CT A/P w/IV and oral contrast: IMPRESSION:
1. Severe wall thickening and moderate inflammatory change adjacent to the distal descending colon, sigmoid colon, and upper rectum, slightly progressed compared to prior study. Findings are most suggestive of severe colitis, likely infectious or
inflammatory. Diverticulitis remains within the differential diagnosis, however degree of bowel wall thickening is out of proportion to the mesenteric inflammatory change, which favors colitis over diverticulitis. Neoplasm is considered less likely,
but also remains in the differential diagnosis.
2. No evidence of pneumatosis intestinalis or extraluminal air. No abdominal pelvic abscess.
3. Focal wall thickening involving the redundant cecal which is located adjacent to the sigmoid colon, likely reactive. Cecal colitis is not suspected.
4. Moderate coronary arterial calcification. Please correlate with symptoms of and risk factors for coronary artery disease, with further workup as clinically appropriate.
01/17/24 Gastrographin enema: IMPRESSION:
1. VERY SEVERE SUBMUCOSAL EDEMA throughout the SIGMOID COLON and DISTAL DESCENDING COLON which is likely secondary to SEVERE ACUTE DIVERTICULITIS. 4 cm in length segment of severe non-obstructed luminal narrowing in the sigmoid colon (greater than
75% luminal narrowing) secondary to severe submucosal edema. Colonic adenocarcinoma is considered a less likely etiology for the luminal narrowing given the length of the involved segment and extensive submucosal edema.
2. Large amount of fecal material throughout the ascending, transverse, and descending colon consistent with severe constipation.
01/15/24 CT A/P w/IV and oral contrast: IMPRESSION: As described, long segment of sigmoid colonic severe wall thickening and stranding of the fat. This likely represents diverticulitis. Additionally, there is wall thickening involving the distal
descending colon which contains prominent stool. Findings likely represent relative obstruction on the basis of severe diverticulitis. A component of stercoral colitis within the distal descending colon is also possible. There is no evidence of
abscess. There is no evidence for free intraperitoneal air. Elevation left hemidiaphragm, increased compared to chest radiograph of May 26, 2011. Bony degenerative changes as described.
Prior GI Procedures:
EGD: none
Colonoscopy: none; had Cologuard a few years ago which was negative. Occult stool test negative this past year per pt/.
Assessment / Plan
-
The patient is a 63-year-old male with a past medical history significant for severe COPD, chronic hypoxic respiratory failure, chronic pain syndrome with opioid dependence, hypertension, degenerative disc disease of the cervical spine, CAD with
prior stents, who presented to the emergency room on 01/15 with complaints of abdominal pain found to have findings on CT scan consistent with severe diverticulitis and possible partial large bowel obstruction with large fecal burden. He improved
after initial course of IV Zosyn, but had worsening pain as of this morning with repeat CT imaging showing worsening inflammation consistent with likely severe colitis adjacent to the distal descending, sigmoid colon, and rectum. He also had a
spike of his white blood cell count with a leukocytosis of 16,600 previously normal. He reports some looser stools today. He has no fevers although is tachycardic which may be secondary to pain. He has had increasing IV pain medication needs.
Imaging did not demonstrate any free air or signs of abscess. No FH IBD, CRC. He has never had a colonoscopy. He has had about 7 episodes of reported diverticulitis since last July, deemed to not be an ideal surgical candidate upon outpatient
evaluation due to his severe COPD.
Problem list:
-acute diverticulitis w/ suspected stricture/possible partial large bowel obstruction
-CT imaging showing severe colitis of descending, sigmoid colon, rectum, and focal wall thickening of the redundant cecum (possibly reactive)
-Chronic constipation with intermittent diarrhea, likely 2/2 opioids
-chronic nausea
-severe COPD
-Chronic hypoxemic respiratory failure with O2 dependence
-Chronic pain syndrome with opioid dependence
Other pertinent medical history:
-CAD with prior stent
-DDD of cervical spine
-HTN
Recommendations:
-Etiology of worsening symptoms likely multifactorial. To consider infectious colitis (r/o Cdiff) versus inflammatory bowel disease with concern for stricture versus complications of diverticulitis versus opiate WD v other.
---Repeat imaging does not demonstrate any obvious obstruction but does show worsening severe colitis of the left side which is where his pain primarily is. He notes the heparin injection made this pain worse as well. His WBC has increased to 16,600
but he has no fevers and does not have signs of sepsis
-At this time we will check stool studies to rule out C. difficile given his report of increased loose stools and leukocytosis (completed a course of Zosyn)
-Monitor for fevers
-Trend WBC count, may be reactive
-To consider flex sig if not improving, although with increased risk given his severe lung disease and also risk of perforation given the severity of the inflammation/diverticulitis. Will discuss with Dr. Butcher
-NPO for now, to consider CLD if symptoms are improving
-Check fecal calprotectin, CRP, and ESR
-Limit use of narcotics as able. He is currently requesting more pain medication. I did notify they nurse
-Continue with bowel regimen for now, unless diarrhea is worsening (he still has some stool burden on CT scan)
-He will need an eventual colonoscopy after discharge
-Will discuss further management with Dr. Butcher
Data Reviewed
-
CT Scan: Report Reviewed by me
Old Records: Reviewed
-
-
Thank you for consultation and allowing me to participate in the patient's care. Please call the tax collection coordinator GI physician during the after hours with any questions or concerns.
--- NOTE | 2024-01-22 17:29 | W.PN.UPDATE ---
Update Note
Progress Note Update
Spoke with colorectal surgeon Dr. Juan Jose Love--CAT scan still shows inflammation and edema with possibility of colitis--given new onset leukocytosis and tachycardia--move patient to IMU--stop Zosyn and changed to cefepime/Flagyl--make n.p.o., will
add IV fluids--back on IV Dilaudid pain control--colorectal surgery to get GI opinion regarding flex sig
[2024-01-22] MEDS: STERILE WATER FOR INJECTION 10 ML IV (17:41)
[2024-01-22] MEDS: NSS 1000 IV (17:41)
[2024-01-22] MEDS: LIPITOR 40 MG PO (17:41)
[2024-01-22] MEDS: FLAGYL 500 MG 100 IV (17:41)
[2024-01-22] MEDS: MAXIPIME 1000 MG IV (17:41)
[2024-01-22] MEDS: LOVENOX 40 MG SC (17:42)
[2024-01-22] MEDS: ATIVAN 1 MG PO (18:25)
[2024-01-22 19:10] LABS: Glucose - Point of Care 125 mg/dl (70-99)
[2024-01-22 19:18] LABS: Erythrocyte Sed Rate 93 mm/hour (0-20)
--- NOTE | 2024-01-22 19:34 | W.PN.UPDATE ---
Update Note
Progress Note Update
Spoke to patient at length regarding clinical status; he has significantly increased operative risks due to his severe COPD and deconditioning; however, due to the increasing leukocytosis and increasing abdominal pain, there is concern for failure
of nonoperative management; he continues to pass gas and have multiple small BMs today; he says his pain is stable from this morning; I reviewed the risks of nonoperative management, including but not limited to failure, worsening infection,
perforation, sepsis and ; I reviewed risks of surgery, including, but not limited to, risk of respiratory failure requiring prolonged intubation, prolonged ICU stay, possible tracheostomy if unable to wean the ventilator and ; patient
stated that he would like to continue nonoperative measures as he does not want prolonged intubation and really does not want a tracheotomy; however, if nonoperative measures fail, he would be agreeable to surgery, despite the increased risks; d/w
Kaveh, will broaden abx coverage to cefepime/flagyl and transfer to IMU
[2024-01-22] MEDS: IMDUR (EXTENDED RELEASE) PO (20:53)
[2024-01-22] MEDS: SENOKOT PO (20:53)
[2024-01-22] MEDS: OXYCONTIN (CONTROLLED RELEASE) PO (20:53)
[2024-01-22] MEDS: COLACE PO (20:53)
--- NOTE | 2024-01-22 20:55 | PTCARENOTE ---
Received pt from 3W RN. Pt scooted over to our bed. Pt is AAOx3. Pt sinus tach w/ PVCs. Pt HR jumped to 170s twice in bed and out to the BSC, JOSEFA Hephziba notified, no new orders. Pt on 6L NC O2 sat 96%, lungs diminished. BSCx1. NS infusing @ 125
ml/hr. CHG bath provided. Plan of care discussed. Pt is laying in bed with call stapleton in reach.
--- NOTE | 2024-01-22 23:41 | PTCARENOTE ---
Addendum entered by Laney Owens RN 01/22/24 23:59:
5mg IV Cardizem ordered (see MAR).
Original Note:
HR sustaining 120s-130s, JOSEFA Baron notified, no new orders.
[2024-01-23] VITALS (13 sets, daily range): BP systolic 123–158; BP diastolic 73–89; O2SAT 98; BMI 22.0
[2024-01-23] MEDS: CARDIZEM 5 MG IV (00:02)
[2024-01-23] MEDS: DILAUDID 0.5 MG IV ×5 (01:48→20:20)
[2024-01-23] MEDS: FLAGYL 500 MG 100 IV ×3 (01:48→17:56)
[2024-01-23] MEDS: STERILE WATER FOR INJECTION 10 ML IV ×3 (01:48→17:55)
[2024-01-23] MEDS: MAXIPIME 1000 MG IV ×3 (01:48→17:55)
[2024-01-23 04:05] LABS: Hematocrit 29.1 % (39.0-52.0); Hemoglobin 9.6 g/dL (13.0-18.0); Mean Corpuscular Hgb 27.6 pg (27.0-31.0); Mean Corpuscular Volume 83.6 fL (80.0-94.0); Mean Platelet Volume 9.1 fL (7.4-10.4); Platelet Count 457 10^3/uL (130-400); Red Blood Cell Count 3.48 10^6/uL (4.70-6.10); Red Cell Dist. Width 15.3 % (11.5-14.5); White Blood Cell Count 16.2 10^3/uL (4.8-10.8)
[2024-01-23 04:33] LABS: ALT (SGPT) 14 U/L (0-50); AST (SGOT) 26 U/L (17-59); Albumin 3.5 g/dl (3.5-5.0); Alkaline Phosphatase 78 U/L (38-126); Blood Urea Nitrogen 14 mg/dl (9-20); Calcium 9.1 mg/dl (8.4-10.2); Carbon Dioxide 27 mmol/L (22-30); Chloride 98 mmol/L (98-107); Estimated Creatinine Clearance 102 ml/min; Glucose 108 mg/dl (70-99); Potassium 3.2 mmol/L (3.5-5.1); Sodium 137 mmol/L (135-145); Total Bilirubin 0.4 mg/dl (0.2-1.3); Total Protein 6.3 g/dl (6.3-8.2); eGFR > 60.00
[2024-01-23] MEDS: NSS 1000 IV (05:35)
[2024-01-23] MEDS: KCL 270 MEQ IV (05:35)
[2024-01-23] MEDS: TORADOL 15 MG IV (05:35)
[2024-01-23] MEDS: SYMBICORT 160/4.5 MCG INHALER 2 PUFF INH ×2 (07:48→19:58)
[2024-01-23] MEDS: SPIRIVA RESPIMAT 2.5 MCG 2 PUFF INH (07:48)
[2024-01-23] MEDS: UNIPHYL 600 MG PO (08:09)
[2024-01-23] MEDS: COLACE 100 MG PO ×2 (08:09→19:21)
[2024-01-23] MEDS: MIRALAX 17 GRAMS PO (08:10)
[2024-01-23] MEDS: LOW STRENGTH ASPIRIN 81 MG PO (08:10)
[2024-01-23] MEDS: DALIRESP 500 MCG PO (08:10)
[2024-01-23] MEDS: IMDUR (EXTENDED RELEASE) 60 MG PO ×2 (08:10→19:21)
[2024-01-23] MEDS: CARDIZEM CD 180 MG PO (08:10)
[2024-01-23] MEDS: OXYCONTIN (CONTROLLED RELEASE) 20 MG PO ×2 (08:10→19:21)
[2024-01-23] MEDS: FLOMAX 0.4 MG PO (08:10)
--- NOTE | 2024-01-23 09:12 | W.PN.GI.CBS2 ---
Today's Communication / Plan
-
Abd pain much improved after multiple BMs overnight
Cont abx
Suggests L colon inflammation is improving
Will hold off on flex sig given high risk for procedure and improving clinical status
I suspect his presentation is due to severe diverticulitis rather than IBD (which would be the reason to consider flex sig. He is already on abx and bowel rest. Management would not be much different at this point, except to consider steroids and
alter approach to surgery, if eventually necessary)
Defer diet advancement to Surgery
Assessment / Plan
-
The patient is a 63-year-old male with a past medical history significant for severe COPD, chronic hypoxic respiratory failure, chronic pain syndrome with opioid dependence, hypertension, degenerative disc disease of the cervical spine, CAD with
prior stents, who presented to the emergency room on 01/15 with complaints of abdominal pain found to have findings on CT scan consistent with severe diverticulitis and possible partial large bowel obstruction with large fecal burden. He improved
after initial course of IV Zosyn, but had worsening pain as of this morning with repeat CT imaging showing worsening inflammation consistent with likely severe colitis adjacent to the distal descending, sigmoid colon, and rectum. He also had a
spike of his white blood cell count with a leukocytosis of 16,600 previously normal. He reports some looser stools today. He has no fevers although is tachycardic which may be secondary to pain. He has had increasing IV pain medication needs.
Imaging did not demonstrate any free air or signs of abscess. No FH IBD, CRC. He has never had a colonoscopy. He has had about 7 episodes of reported diverticulitis since last July, deemed to not be an ideal surgical candidate upon outpatient
evaluation due to his severe COPD.
Problem list:
-acute diverticulitis w/ suspected stricture/possible partial large bowel obstruction
-CT imaging showing severe colitis of descending, sigmoid colon, rectum, and focal wall thickening of the redundant cecum (possibly reactive)
-Chronic constipation with intermittent diarrhea, likely 2/2 opioids
-chronic nausea
-severe COPD
-Chronic hypoxemic respiratory failure with O2 dependence
-Chronic pain syndrome with opioid dependence
Other pertinent medical history:
-CAD with prior stent
-DDD of cervical spine
-HTN
Subjective
Subjective
Date of Service: January 23, 2024
Pt reports abd pain much improved this am after passing multiple BMs overnight
Objective
Data Reviewed
Laboratory Data:
Laboratory Results
01/23/24 03:54
01/23/24 03:54
Laboratory Results
Magnesium 2.0 mg/dl (1.6-2.3) 01/23/24 03:54
Total Bilirubin 0.4 mg/dl (0.2-1.3) 01/23/24 03:54
AST 26 U/L (17-59) 01/23/24 03:54
ALT 14 U/L (0-50) 01/23/24 03:54
Alkaline Phosphatase 78 U/L (38-126) 01/23/24 03:54
Vital Signs and I&O:
Vital Signs
Temp Pulse Resp BP Pulse Ox
98.4 F 98 18 146/83 99
01/23/24 07:51 01/23/24 07:54 01/23/24 07:54 01/23/24 06:00 01/23/24 07:54
I&O
01/22/24 01/23/24 01/24/24
06:59 06:59 06:59
Intake Total 1880 / 1880 1500 / 1500
Output Total 120 / 120 200 / 200 300 / 300
Balance 1760 / 1760 1300 / 1300 -300 / -300
Physical Exam
Physical Exam
GI: Soft, Non Distended and Tender (mild LLQ tenderness)
--- NOTE | 2024-01-23 09:17 | W.PN.CRS1 ---
Today's Communication / Plan
-
As below
Assessment/Plan
-
63-year-old male with PMH of chronic pain syndrome (on chronic opiates), CAD s/p stent, severe COPD (6L home O2), HTN, DJD who presented on 01/15 with abdominal pain, found to have severe diverticulitis with significant mucosal edema, concerning for
partial large bowel obstruction, barium enema confirmed 4 cm of mucosal edema and narrowing, less concerning for malignancy; being treated nonoperatively with IV antibiotics and bowel rest
Afebrile, HR 100-120s, normotensive
WBC 16.2 from 16.6, Hb 9.6, CRP 153
� Diverticulitis with partial large bowel obstruction
�No concerning signs for peritonitis or perforation; continue nonoperative management
�Repeat CT shows stable findings associated with severe diverticulitis and mural edema, no concerns for large bowel obstruction
�Currently clinically stable, but reiterated that if he decompensates further or shows evidence of peritonitis or sepsis, would recommend surgery; pt understood and was agreeable
� Appreciate GI; recommending against flex sig due to possible stricture from inflammation; follow-up stool studies
�Continue n.p.o., okay for p.o. meds
� Continue DVT PPx with Lovenox
� Continue home meds
� Continue IV cefepime and Flagyl
� Pain control with Tylenol and oxycodone; okay to increase regimen to improve pain control
� Appreciate hospitalist
Subjective Data
Subjective Data
Date of Service: January 23, 2024
No overnight events.
Pain continues to be poorly controlled, but not worse than yesterday
Still with intermittent nausea, controlled with Zofran
+flatus +BMs (several since yesterday) +voiding
Objective Data
-
Vital Signs
Temp Pulse Resp BP Pulse Ox
98.4 F 98 18 146/83 99
01/23/24 07:51 01/23/24 07:54 01/23/24 07:54 01/23/24 06:00 01/23/24 07:54
Intake & Output
01/22/24 01/23/24 01/24/24
06:59 06:59 06:59
Intake Total 1880 / 1880 1500 / 1500
Output Total 120 / 120 200 / 200 300 / 300
Balance 1760 / 1760 1300 / 1300 -300 / -300
Intake:
Oral fluids 1780 / 1780
IV fluids (Total) 100 / 100 1500 / 1500
Output:
Urine, Voided 120 / 120 200 / 200 300 / 300
Other:
Number of approximated SMALL 2
amounts of urine
Number of approximated MODERATE 1 1
amounts of urine
How many times incontinent 1
MODERATE amount urine
Lab Results
01/23/24 03:54
01/23/24 03:54
Physical Exam
-
General: No Acute Distress and AOx3
HEENT: Grossly Normal
Abdomen: Soft, Non Distended and Tender (Moderately tender in the LLQ, no guarding today, no rebound, slightly improved from exam yesterday)
Skin: Warm and Dry
[2024-01-23] MEDS: ZOFRAN 4 MG IV ×3 (10:17→22:08)
[2024-01-23] MEDS: NSS IV (14:26)
[2024-01-23] MEDS: KCL 40 MEQ PO (16:01)
[2024-01-23] MEDS: D5/0.45%NSS with KCL 20 MEQ 1000 IV (16:01)
--- NOTE | 2024-01-23 16:45 | W.PN.HOSP.TC ---
Today's Communication/Plan
-
NPO.
IV antibiotics
IV fluids.
Follow BMP
Assessment / Plan
Assessment / Plan
pt is a 63 year old male
Sigmoid Stricture likely from Diverticular Disease--likely constipation due to stricture too--apprec CRS and s/p gastrograffin enema, results show edema- CT imaging and history suggest inflammation and resultant stricture in the sigmoid region with
partial obstruction, pain, constipation. Overall pain improved with so far no concerning signs of perforation or peritonitis. Imaging showing stable findings of severe sigmoid diverticulitis with mural edema without obstruction. Continue n.p.o.,
IV antibiotics, adjust analgesic regimen. IV fluids with D5/KCl. Follow BMP.
Hypokalemia. Replete potassium and follow BMP.
Severe COPD--Chronic Hypoxemic Respiratory Failure-- - Patient states that he typically uses 6-8 lpm of supplemental O2 at home- Continue current inhaler regimen. Albuterol nebs PRN- Continue medications (Daliresp / Theophylline)--apprec
pulmonary--pt high risk for any procedures
ASCVD- Stable. No complaints of chest pain--Patient is not currently on ASA despite history of coronary stenting x 2--Will start low dose ASA- Continue statin.
Chronic Pain Syndrome with Chronic Opioid Dependence - Followed by Dr. Dinero- Med regimen confirmed with PDMP - follow-up with usual Pain Med doc after discharge - Suspect that chronic opioid use has contributed to chronic constipation and
resultant sigmoid changes--on oral meds
Normocytic Anemia--likely of chronic disease--not iron deficient
mild protein calorie malnutrition of acute illness--apprec dietary
DVT prophylaxis: Lovenox
Code Status: Full
Anticipated Discharge: > 48 hours
Subjective/Interval History
-
Date of Service: January 23, 2024
Objective Data
-
Vital Signs:
Vital Signs
Temp Pulse Resp BP Pulse Ox
98.4 F 98 18 146/83 99
01/23/24 15:28 01/23/24 07:54 01/23/24 07:54 01/23/24 06:00 01/23/24 12:00
I&O
01/22/24 01/23/24 01/24/24
06:59 06:59 06:59
Intake Total 1880 / 1880 1500 / 1500
Output Total 120 / 120 200 / 200 500 / 500
Balance 1760 / 1760 1300 / 1300 -500 / -500
Physical Exam
-
General: Well Developed, Well Nourished and No Apparent Distress
HEENT: Normocephalic, Atraumatic and Oxygen
Respiratory: Clear to Auscultation; Negative Wheezes or Rhonchi
Cardiac: Regular Rhythm, S1/S2 and Tachycardic
GI: Soft, Nondistended, Normal Bowel Sounds and Tender (RLQ)
Musculoskeletal: No Clubbing, No Cyanosis and No Edema
Skin: Warm
Neuro: Awake
Psych: Calm
[2024-01-23] MEDS: LOVENOX 40 MG SC (17:55)
[2024-01-23] MEDS: LIPITOR 40 MG PO (17:56)
--- NOTE | 2024-01-23 20:29 | PTCARENOTE ---
Received pt from [facility]. Pt is AAOx3. NSR/ sinus tach w/ PVCs on the monitor. On 6L NC O2 sat 98%, lungs diminished. Pt c/o of pain and nausea, PRN medications given (see MAR). D5 0.45% NSS w/ 20 KCL infusing @ 100 ml/hr. Pt is laying in bed
with call stapleton in reach.
[2024-01-23 20:58] LABS: Urine Albumin Trace (Neg - Trace); Urine Bilirubin Negative (Negative); Urine Character Clear (Clear); Urine Color Yellow; Urine Glucose Negative (Negative); Urine Ketone 3+ (Negative); Urine Leukocyte Trace (Negative); Urine Nitrite Negative (Negative); Urine Occult Blood Negative (Negative); Urine Urobilinogen Negative (Neg - 1+)
[2024-01-23 21:07] LABS: Urine Mucus Few; Urine Squamous Cell 0-2 /LPF (Few)
[2024-01-23 21:08] LABS: Urine Bacteria Few (Negative); Urine Red Blood Cell 0-2 /HPF (0-2); Urine White Cell 0-2 /HPF (0-5)
[2024-01-23] MEDS: SENOKOT 17.2 MG PO (22:06)
[2024-01-23] MEDS: FIORICET 1 TAB PO (23:16)
[2024-01-24] VITALS (12 sets, daily range): BP systolic 117–145; BP diastolic 72–97; PULSE 96; O2SAT 97; BMI 22.3
[2024-01-24] MEDS: DILAUDID 0.5 MG IV ×2 (01:20→08:53)
[2024-01-24] MEDS: FLAGYL 500 MG 100 IV ×3 (01:20→17:09)
[2024-01-24] MEDS: STERILE WATER FOR INJECTION 10 ML IV ×3 (01:20→17:09)
[2024-01-24] MEDS: MAXIPIME 1000 MG IV ×3 (01:20→17:09)
--- NOTE | 2024-01-24 02:56 | DOWNTIME ---
There was a [employer] Downtime on 01/24/2024 from 0100 to 01/24/2024 at 0252. Downtime documentation of patient's care, including medication administrations, has been reconciled in the electronic record per guidelines. Refer to the
patient's paper chart under the miscellaneous tab to see printed paper medication records and downtime forms.
[2024-01-24] MEDS: D5/0.45%NSS with KCL 20 MEQ 1000 IV (03:39)
[2024-01-24 04:08] LABS: % Basophils 0.5 % (0-2); % Eosinophils 1.9 % (0-6); % Immature Granulocytes 0.5 % (0-0.5); % Lymphocytes 22.9 % (20.5-51.1); % Monocytes 11.7 % (1.7-9.3); % Neutrophils 62.5 % (42.2-75.2); Absolute Basophils 0.1 10^3/uL (0-0.2); Absolute Eosinophils 0.2 10^3/uL (0-0.7); Absolute Immature Granulocytes 0.1 10^3/uL (0-0.05); Absolute Lymphocytes 2.1 10^3/uL (1.2-3.4); Absolute Monocytes 1.1 10^3/uL (0.1-0.6); Absolute Neutrophils 5.7 10^3/uL (1.4-6.5); Hemoglobin 9.5 g/dL (13.0-18.0); Mean Corp Hgb Conc. 31.7 g/dL (33.0-37.0); Mean Corpuscular Hgb 26.6 pg (27.0-31.0); Mean Platelet Volume 9.3 fL (7.4-10.4); Nucleated Red Blood Cells % 0 % (-); Platelet Count 422 10^3/uL (130-400); Red Blood Cell Count 3.57 10^6/uL (4.70-6.10); Red Cell Dist. Width 15.4 % (11.5-14.5); White Blood Cell Count 9.1 10^3/uL (4.8-10.8)
[2024-01-24 04:28] LABS: Blood Urea Nitrogen 14 mg/dl (9-20); Carbon Dioxide 27 mmol/L (22-30); Chloride 102 mmol/L (98-107); Estimated Creatinine Clearance 103 ml/min; Glucose 97 mg/dl (70-99); Potassium 4.6 mmol/L (3.5-5.1); Sodium 135 mmol/L (135-145); eGFR > 60.00
[2024-01-24] MEDS: SPIRIVA RESPIMAT 2.5 MCG 2 PUFF INH (07:51)
[2024-01-24] MEDS: SYMBICORT 160/4.5 MCG INHALER 2 PUFF INH ×2 (07:52→20:29)
--- NOTE | 2024-01-24 07:52 | W.PN.CRS1 ---
Today's Communication / Plan
-
Follows with Ens[facility]
Assessment/Plan
-
63-year-old male with PMH of chronic pain syndrome (on chronic opiates), CAD s/p stent, severe COPD (6L home O2), HTN, DJD who presented on 01/15 with abdominal pain, found to have severe diverticulitis with significant mucosal edema, concerning for
partial large bowel obstruction, barium enema confirmed 4 cm of mucosal edema and narrowing, less concerning for malignancy; being treated nonoperatively with IV antibiotics and bowel rest
Afebrile, HR now WNL
WBC 9.1
� Diverticulitis with partial large bowel obstruction
�No concerning signs for peritonitis or perforation; continue nonoperative management
�Repeat CT shows stable findings associated with severe diverticulitis and mural edema, no concerns for large bowel obstruction
�Currently clinically stable, but reiterated that if he decompensates further or shows evidence of peritonitis or sepsis, would recommend surgery; pt understood and was agreeable
� Appreciate GI; recommending against flex sig due to possible stricture from inflammation
�Advance to full's with Ensure
� Continue DVT PPx with Lovenox
� Continue home meds
� Continue IV cefepime and Flagyl
� Pain control with Tylenol and oxycodone; okay to increase regimen to improve pain control
� Appreciate hospitalist
Subjective Data
Subjective Data
Date of Service: January 24, 2024
Patient states he feels 'not too bad'. He has flatus. He did not have any bowel movements overnight. He has not been hungry.
Objective Data
-
Vital Signs
Temp Pulse Resp BP Pulse Ox
98.5 F 80 14 123/72 98
01/24/24 03:58 01/24/24 06:00 01/24/24 06:00 01/24/24 06:00 01/24/24 06:00
Intake & Output
01/23/24 01/24/24 01/25/24
06:59 06:59 06:59
Intake Total 1500 / 1500 2350 / 2350
Output Total 200 / 200 1250 / 1250
Balance 1300 / 1300 1100 / 1100
Intake:
IV fluids (Total) 1500 / 1500 2000 / 2000
IV piggybacks 350 / 350
Output:
Urine, Voided 200 / 200 1250 / 1250
Other:
Number of approximated SMALL 2
amounts of urine
Number of approximated MODERATE 1
amounts of urine
How many times incontinent 1
MODERATE amount urine
Lab Results
01/24/24 03:51
01/24/24 03:51
Physical Exam
-
General: No Acute Distress and AOx3
Abdomen: Soft, Non Distended and Tender (Moderate left lower quadrant)
--- NOTE | 2024-01-24 08:44 | W.PN.GI.CBS2 ---
Today's Communication / Plan
-
WBC down to 9 from 16 today
Diet advanced to full liquids by Colorectal Surgery
Told pt to follow up with GI to discuss colonoscopy as outpt after resolution of acute diverticulitis, to rule out underlying malignancy or IBD, less likely
Will sign off for now. Please call back if needed.
Assessment / Plan
-
The patient is a 63-year-old male with a past medical history significant for severe COPD, chronic hypoxic respiratory failure, chronic pain syndrome with opioid dependence, hypertension, degenerative disc disease of the cervical spine, CAD with
prior stents, who presented to the emergency room on 01/15 with complaints of abdominal pain found to have findings on CT scan consistent with severe diverticulitis and possible partial large bowel obstruction with large fecal burden. He improved
after initial course of IV Zosyn, but had worsening pain as of this morning with repeat CT imaging showing worsening inflammation consistent with likely severe colitis adjacent to the distal descending, sigmoid colon, and rectum. He also had a
spike of his white blood cell count with a leukocytosis of 16,600 previously normal. He reports some looser stools today. He has no fevers although is tachycardic which may be secondary to pain. He has had increasing IV pain medication needs.
Imaging did not demonstrate any free air or signs of abscess. No FH IBD, CRC. He has never had a colonoscopy. He has had about 7 episodes of reported diverticulitis since last July, deemed to not be an ideal surgical candidate upon outpatient
evaluation due to his severe COPD.
Problem list:
-acute diverticulitis w/ suspected stricture/possible partial large bowel obstruction
-CT imaging showing severe colitis of descending, sigmoid colon, rectum, and focal wall thickening of the redundant cecum (possibly reactive)
-Chronic constipation with intermittent diarrhea, likely 2/2 opioids
-chronic nausea
-severe COPD
-Chronic hypoxemic respiratory failure with O2 dependence
-Chronic pain syndrome with opioid dependence
Other pertinent medical history:
-CAD with prior stent
-DDD of cervical spine
-HTN
Subjective
Subjective
Date of Service: January 24, 2024
abd pain persists, but not much worsened.
Objective
Data Reviewed
Laboratory Data:
Laboratory Results
01/24/24 03:51
01/24/24 03:51
Laboratory Results
Magnesium 2.0 mg/dl (1.6-2.3) 01/23/24 03:54
Total Bilirubin 0.4 mg/dl (0.2-1.3) 01/23/24 03:54
AST 26 U/L (17-59) 01/23/24 03:54
ALT 14 U/L (0-50) 01/23/24 03:54
Alkaline Phosphatase 78 U/L (38-126) 01/23/24 03:54
Vital Signs and I&O:
Vital Signs
Temp Pulse Resp BP Pulse Ox
98.5 F 94 18 123/72 98
01/24/24 03:58 01/24/24 08:02 01/24/24 08:02 01/24/24 06:00 01/24/24 08:02
I&O
01/23/24 01/24/24 01/25/24
06:59 06:59 06:59
Intake Total 1500 / 1500 2350 / 2350
Output Total 200 / 200 1250 / 1250
Balance 1300 / 1300 1100 / 1100
Physical Exam
Physical Exam
GI: Soft and Tender (mild LLQ)
[2024-01-24] MEDS: IMDUR (EXTENDED RELEASE) 60 MG PO ×2 (08:52→19:44)
[2024-01-24] MEDS: MIRALAX 17 GRAMS PO (08:52)
[2024-01-24] MEDS: LOW STRENGTH ASPIRIN 81 MG PO (08:52)
[2024-01-24] MEDS: COLACE 100 MG PO ×2 (08:52→19:44)
[2024-01-24] MEDS: OXYCONTIN (CONTROLLED RELEASE) 20 MG PO ×2 (08:52→19:44)
[2024-01-24] MEDS: CARDIZEM CD 180 MG PO (08:52)
[2024-01-24] MEDS: DALIRESP 500 MCG PO (08:52)
[2024-01-24] MEDS: FLOMAX 0.4 MG PO (08:52)
[2024-01-24] MEDS: UNIPHYL 600 MG PO (08:53)
[2024-01-24] MEDS: ROXICODONE 20 MG PO ×3 (12:32→21:13)
--- NOTE | 2024-01-24 14:47 | W.PN.HOSP.TC ---
Today's Communication/Plan
-
Full liquid diet
Antibiotics.
Resume preadmission analgesic regimen OxyContin/oxycodone wean off IV hydromorphone.
Assessment / Plan
Assessment / Plan
pt is a 63 year old male
Sigmoid Stricture likely from Diverticular Disease--likely constipation due to stricture too--apprec CRS and s/p gastrograffin enema, results show edema- CT imaging and history suggest inflammation and resultant stricture in the sigmoid region with
partial obstruction, pain, constipation. Overall pain improved with so far no concerning signs of perforation or peritonitis. Imaging showing stable findings of severe sigmoid diverticulitis with mural edema without obstruction
Continue antibiotics Zosyn with transition to oral regimen to complete antibiotic course for total of 14 days
IV antibiotics, adjust analgesic regimen. IV fluids with D5/KCl. Follow BMP.
Hypokalemia. Replete potassium and follow BMP.
Severe COPD--Chronic Hypoxemic Respiratory Failure-- - Patient states that he typically uses 6-8 lpm of supplemental O2 at home- Continue current inhaler regimen. Albuterol nebs PRN- Continue medications (Daliresp / Theophylline)--apprec
pulmonary--pt high risk for any procedures
ASCVD- Stable. No complaints of chest pain--Patient is not currently on ASA despite history of coronary stenting x 2--Will start low dose ASA- Continue statin.
Chronic Pain Syndrome with Chronic Opioid Dependence - Followed by Dr. Dinero- Med regimen confirmed with PDMP - follow-up with usual Pain Med doc after discharge - Suspect that chronic opioid use has contributed to chronic constipation and
resultant sigmoid changes--on oral meds
Normocytic Anemia--likely of chronic disease--not iron deficient
mild protein calorie malnutrition of acute illness--apprec dietary
DVT prophylaxis: Lovenox
Code Status: Full
Anticipated Discharge: 24 - 48 hours
Subjective/Interval History
-
Date of Service: January 24, 2024
Objective Data
-
Labs:
Laboratory Results
01/24/24
03:51
WBC 9.1
Hgb 9.5 L
Hct 30.0 L
Plt Count 422 H
Sodium 135
Potassium 4.6 D
Chloride 102
Carbon Dioxide 27
BUN 14
Creatinine 0.7
Glucose 97
Calcium 9.0
Vital Signs:
Vital Signs
Temp Pulse Resp BP Pulse Ox
98.6 F 92 12 132/86 96
01/24/24 11:05 01/24/24 11:05 01/24/24 11:05 01/24/24 11:05 01/24/24 11:58
I&O
01/23/24 01/24/24 01/25/24
06:59 06:59 06:59
Intake Total 1500 / 1500 2350 / 2350 580 / 580
Output Total 200 / 200 1250 / 1250 200 / 200
Balance 1300 / 1300 1100 / 1100 380 / 380
Physical Exam
-
General: Well Developed, Well Nourished and No Apparent Distress
HEENT: Normocephalic, Atraumatic and Oxygen
Respiratory: Clear to Auscultation; Negative Wheezes or Rhonchi
Cardiac: Regular Rhythm, S1/S2 and Tachycardic
GI: Soft, Nondistended, Normal Bowel Sounds and Tender (RLQ)
Musculoskeletal: No Clubbing, No Cyanosis and No Edema
Skin: Warm
Neuro: Awake
Psych: Calm
--- NOTE | 2024-01-24 16:14 | CM ---
Addendum entered by Mora Willis RN 01/24/24 16:39:
Additionally patient reports he is on home O2 6L at baseline, and his home O2 concentrator goes up to 10L.
Original Note:
Patient with Dx Sigmoid Stricture likely from Diverticular Disease, severe COPD. O2 6L. Full liquids. Receiving IV Abx, IVF, IV Dilaudid & Roxicodone prn. PT & OT recommend HH.
Spoke with patient re; his current mobility. He is receptive to having VN for PT/OT however wants his SO Delaney to decide which VN agency, as she was in SNF Admissions previously at [facility]. He is clear that he does not want [facility] VN again.
Phone call to Delaney, patient's SO; left message requesting callback for d/c planning.
Plan follow up with patient's SO re; VN agency preference.
[2024-01-24] MEDS: ZOFRAN 4 MG IV (16:43)
[2024-01-24] MEDS: D5/0.45%NSS with KCL 20 MEQ IV ×2 (16:43→19:28)
[2024-01-24] MEDS: FIORICET 1 TAB PO (17:07)
[2024-01-24] MEDS: LOVENOX 40 MG SC (17:08)
[2024-01-24] MEDS: LIPITOR 40 MG PO (17:08)
[2024-01-24] MEDS: SENOKOT 17.2 MG PO (19:44)
[2024-01-24] MEDS: ATIVAN 1 MG PO (21:15)
--- NOTE | 2024-01-24 22:49 | PTCARENOTE ---
Pt c/o left sided abd pain, PRN pain medication given (see MAR). VSS. Pt is laying in bed with call stapleton in reach.
[2024-01-24 23:01] LABS: Glucose - Point of Care 136 mg/dl (70-99)
[2024-01-25] VITALS (10 sets, daily range): BP systolic 108–156; BP diastolic 69–95; BMI 22.1; BMI 22.2
[2024-01-25] MEDS: MAXIPIME 1000 MG IV ×3 (01:46→17:24)
[2024-01-25] MEDS: STERILE WATER FOR INJECTION 10 ML IV ×3 (01:46→17:24)
[2024-01-25] MEDS: FLAGYL 500 MG 100 IV ×3 (01:46→17:23)
[2024-01-25] MEDS: ROXICODONE 20 MG PO ×4 (01:46→23:32)
[2024-01-25 03:39] LABS: % Basophils 0.4 % (0-2); % Eosinophils 1.5 % (0-6); % Immature Granulocytes 0.8 % (0-0.5); % Lymphocytes 20.9 % (20.5-51.1); % Monocytes 11.8 % (1.7-9.3); % Neutrophils 64.6 % (42.2-75.2); Absolute Eosinophils 0.1 10^3/uL (0-0.7); Absolute Immature Granulocytes 0.1 10^3/uL (0-0.05); Absolute Lymphocytes 1.9 10^3/uL (1.2-3.4); Absolute Monocytes 1.1 10^3/uL (0.1-0.6); Absolute Neutrophils 5.9 10^3/uL (1.4-6.5); Hematocrit 28.4 % (39.0-52.0); Hemoglobin 9.1 g/dL (13.0-18.0); Mean Corpuscular Hgb 26.1 pg (27.0-31.0); Mean Corpuscular Volume 81.4 fL (80.0-94.0); Mean Platelet Volume 9.5 fL (7.4-10.4); Nucleated Red Blood Cells % 0 % (-); Platelet Count 437 10^3/uL (130-400); Red Blood Cell Count 3.49 10^6/uL (4.70-6.10); Red Cell Dist. Width 15.7 % (11.5-14.5); White Blood Cell Count 9.2 10^3/uL (4.8-10.8)
[2024-01-25] MEDS: ZOFRAN 4 MG IV ×2 (05:04→19:58)
[2024-01-25] MEDS: DILAUDID 0.5 MG IV ×2 (05:04→20:38)
--- NOTE | 2024-01-25 07:44 | W.PN.CRS1 ---
Today's Communication / Plan
-
no surgery at this time
low residue
Assessment/Plan
-
63-year-old male with PMH of chronic pain syndrome (on chronic opiates), CAD s/p stent, severe COPD (6L home O2), HTN, DJD who presented on 01/15 with abdominal pain, found to have severe diverticulitis with significant mucosal edema, concerning for
partial large bowel obstruction, barium enema confirmed 4 cm of mucosal edema and narrowing, less concerning for malignancy; being treated nonoperatively with IV antibiotics and bowel rest
Afebrile, HR now WNL
WBC 9.2
� Diverticulitis with partial large bowel obstruction
�No concerning signs for peritonitis or perforation; continue nonoperative management
�Repeat CT shows stable findings associated with severe diverticulitis and mural edema, no concerns for large bowel obstruction
�Currently clinically stable, but reiterated that if he decompensates further or shows evidence of peritonitis or sepsis, would recommend surgery; pt understood and was agreeable
� Appreciate GI; recommending against flex sig due to possible stricture from inflammation - has signed off
� Advance to low residue with Ensure
� Continue DVT PPx with Lovenox
� Continue home meds
� Continue IV cefepime and Flagyl
� Pain control with Tylenol and oxycodone; okay to increase regimen to improve pain control
� Appreciate hospitalist
- Holding off on surgery at this time
Subjective Data
Subjective Data
Date of Service: January 25, 2024
Patient states he is having bowel movements and flatus. His pain is better today. He has flatus. He has a little nausea. Zofran helps.
Objective Data
-
Vital Signs
Temp Pulse Resp BP Pulse Ox
98.0 F 85 16 136/87 97
01/25/24 03:23 01/25/24 06:00 01/25/24 06:00 01/25/24 06:00 01/25/24 06:00
Intake & Output
01/24/24 01/25/24 01/26/24
06:59 06:59 06:59
Intake Total 2350 / 2350 1090 / 1090
Output Total 1250 / 1250 675 / 675
Balance 1100 / 1100 415 / 415
Intake:
Oral fluids 890 / 890
IV fluids (Total) 1999 / 1999
IV piggybacks 350 / 350 200 / 200
Output:
Urine, Voided 1250 / 1250 675 / 675
Other:
Number of approximated MODERATE 2
amounts of urine
Lab Results
01/25/24 03:29
01/24/24 03:51
Physical Exam
-
General: No Acute Distress and AOx3
Abdomen: Soft, Non Distended and Tender (mild LLQ (improving))
[2024-01-25] MEDS: SPIRIVA RESPIMAT 2.5 MCG 2 PUFF INH (08:02)
[2024-01-25] MEDS: SYMBICORT 160/4.5 MCG INHALER 2 PUFF INH ×2 (08:05→20:12)
[2024-01-25] MEDS: MIRALAX PO (08:39)
[2024-01-25] MEDS: UNIPHYL 600 MG PO (08:40)
[2024-01-25] MEDS: IMDUR (EXTENDED RELEASE) 60 MG PO (08:40)
[2024-01-25] MEDS: LOW STRENGTH ASPIRIN 81 MG PO (08:40)
[2024-01-25] MEDS: OXYCONTIN (CONTROLLED RELEASE) 20 MG PO ×2 (08:41→19:57)
[2024-01-25] MEDS: DALIRESP 500 MCG PO (08:42)
[2024-01-25] MEDS: CARDIZEM CD 180 MG PO (08:42)
[2024-01-25] MEDS: FLOMAX 0.4 MG PO (08:42)
[2024-01-25] MEDS: COLACE 100 MG PO ×2 (08:42→19:57)
[2024-01-25 10:26] LABS: Calprotectin, Fecal 162 ug/g (<=49)
--- NOTE | 2024-01-25 10:49 | TRANSFER ---
Pt in process of being transferred to [facility]. Report given to ANSLEY Stone
--- NOTE | 2024-01-25 11:20 | PTCARENOTE ---
01/24- Patient transferred and oriented to unit without issue. AAOX3, currently no c/o pain except some mild tenderness in the LLQ of the abdomen relieved by oxycodone. Skin CDI. 6L O2 via NC. Patient denies any complaints at this time.
--- NOTE | 2024-01-25 15:02 | W.PN.HOSP.TC ---
Today's Communication/Plan
-
Low residue diet.
IV antibiotics with plan to transition to oral regimen to complete 14 days of treatment
Discharge planning
Physical therapy will
Assessment / Plan
Assessment / Plan
pt is a 63 year old male
Sigmoid Stricture likely from Diverticular Disease--likely constipation due to stricture too--apprec CRS and s/p gastrograffin enema, results show edema- CT imaging and history suggest inflammation and resultant stricture in the sigmoid region with
partial obstruction, pain, constipation. Overall pain improved with so far no concerning signs of perforation or peritonitis. Imaging showing stable findings of severe sigmoid diverticulitis with mural edema without obstruction
Continue antibiotics Zosyn with transition to oral regimen to complete antibiotic course for total of 14 days
IV antibiotics, adjust analgesic regimen. IV fluids with D5/KCl. Follow BMP.
Hypokalemia. Replete potassium and follow BMP.
Severe COPD--Chronic Hypoxemic Respiratory Failure-- - Patient states that he typically uses 6-8 lpm of supplemental O2 at home- Continue current inhaler regimen. Albuterol nebs PRN- Continue medications (Daliresp / Theophylline)--apprec
pulmonary--pt high risk for any procedures
ASCVD- Stable. No complaints of chest pain--Patient is not currently on ASA despite history of coronary stenting x 2--Will start low dose ASA- Continue statin.
Chronic Pain Syndrome with Chronic Opioid Dependence - Followed by Dr. Dinero- Med regimen confirmed with PDMP - follow-up with usual Pain Med doc after discharge - Suspect that chronic opioid use has contributed to chronic constipation and
resultant sigmoid changes--on oral meds
Normocytic Anemia--likely of chronic disease--not iron deficient
mild protein calorie malnutrition of acute illness--apprec dietary
DVT prophylaxis: Lovenox
Code Status: Full
Anticipated Discharge: 24 - 48 hours
Subjective/Interval History
-
Date of Service: January 25, 2024
Objective Data
-
Labs:
Laboratory Results
01/25/24
03:29
WBC 9.2
Hgb 9.1 L
Hct 28.4 L
Plt Count 437 H
Vital Signs:
Vital Signs
Temp Pulse Resp BP Pulse Ox
98.1 F 97 12 150/82 99
01/25/24 11:31 01/25/24 11:31 01/25/24 11:31 01/25/24 11:31 01/25/24 11:31
I&O
01/24/24 01/25/24 01/26/24
06:59 06:59 06:59
Intake Total 2350 / 2350 1090 / 1090
Output Total 1250 / 1250 675 / 675 250 / 250
Balance 1100 / 1100 415 / 415 -250 / -250
Physical Exam
-
General: Well Developed, Well Nourished and No Apparent Distress
HEENT: Normocephalic, Atraumatic and Oxygen
Respiratory: Clear to Auscultation; Negative Wheezes or Rhonchi
Cardiac: Regular Rhythm, S1/S2 and Tachycardic
GI: Soft, Nondistended, Normal Bowel Sounds and Tender (RLQ)
Musculoskeletal: No Clubbing, No Cyanosis and No Edema
Skin: Warm
Neuro: Awake
Psych: Calm
[2024-01-25] MEDS: FIORICET 1 TAB PO ×2 (15:46→23:32)
[2024-01-25] MEDS: LOVENOX 40 MG SC (17:22)
[2024-01-25] MEDS: LIPITOR 40 MG PO (17:26)
[2024-01-25] MEDS: IMDUR (EXTENDED RELEASE) PO (19:46)
[2024-01-25] MEDS: SENOKOT 17.2 MG PO (19:52)
[2024-01-25] MEDS: ATIVAN 1 MG PO (23:32)
[2024-01-26] MEDS: FLAGYL 500 MG 100 IV ×2 (02:23→09:01)
[2024-01-26] MEDS: MAXIPIME 1000 MG IV ×2 (02:25→09:00)
[2024-01-26] MEDS: STERILE WATER FOR INJECTION 10 ML IV ×2 (02:25→09:01)
[2024-01-26] MEDS: DILAUDID 0.5 MG IV (02:41)
[2024-01-26] MEDS: ROXICODONE 20 MG PO ×3 (05:54→14:19)
[2024-01-26 07:40] VITALS: BP 114/78
[2024-01-26] MEDS: SPIRIVA RESPIMAT 2.5 MCG 2 PUFF INH (07:58)
[2024-01-26] MEDS: SYMBICORT 160/4.5 MCG INHALER 2 PUFF INH (07:58)
[2024-01-26 08:14] LABS: % Basophils 0.5 % (0-2); % Eosinophils 1.6 % (0-6); % Immature Granulocytes 0.5 % (0-0.5); % Lymphocytes 19.5 % (20.5-51.1); % Monocytes 14.2 % (1.7-9.3); % Neutrophils 63.7 % (42.2-75.2); Absolute Eosinophils 0.1 10^3/uL (0-0.7); Absolute Lymphocytes 1.7 10^3/uL (1.2-3.4); Absolute Monocytes 1.2 10^3/uL (0.1-0.6); Absolute Neutrophils 5.4 10^3/uL (1.4-6.5); Hematocrit 29.2 % (39.0-52.0); Hemoglobin 9.2 g/dL (13.0-18.0); Mean Corp Hgb Conc. 31.5 g/dL (33.0-37.0); Mean Corpuscular Volume 82.5 fL (80.0-94.0); Mean Platelet Volume 9.9 fL (7.4-10.4); Nucleated Red Blood Cells % 0 % (-); Platelet Count 486 10^3/uL (130-400); Red Blood Cell Count 3.54 10^6/uL (4.70-6.10); Red Cell Dist. Width 15.8 % (11.5-14.5); White Blood Cell Count 8.5 10^3/uL (4.8-10.8)
[2024-01-26] MEDS: LOW STRENGTH ASPIRIN 81 MG PO (08:49)
[2024-01-26] MEDS: MIRALAX PO (08:49)
[2024-01-26] MEDS: DALIRESP 500 MCG PO (08:49)
[2024-01-26] MEDS: CARDIZEM CD 180 MG PO (08:49)
[2024-01-26] MEDS: OXYCONTIN (CONTROLLED RELEASE) 20 MG PO (08:50)
[2024-01-26] MEDS: COLACE 100 MG PO (08:50)
[2024-01-26] MEDS: FLOMAX 0.4 MG PO (08:50)
[2024-01-26] MEDS: IMDUR (EXTENDED RELEASE) 60 MG PO (08:50)
[2024-01-26] MEDS: UNIPHYL 600 MG PO (08:50)
[2024-01-26] MEDS: ZOFRAN 4 MG IV (09:00)
--- NOTE | 2024-01-26 10:43 | W.PN.CRS1 ---
Today's Communication / Plan
-
No plans for surgery
Patient overall is improving
Will sign off, please contact if further surgical issues arise.
Assessment/Plan
-
63-year-old male with PMH of chronic pain syndrome (on chronic opiates), CAD s/p stent, severe COPD (6L home O2), HTN, DJD who presented on 01/15 with abdominal pain, found to have severe diverticulitis with significant mucosal edema, concerning for
partial large bowel obstruction, barium enema confirmed 4 cm of mucosal edema and narrowing, less concerning for malignancy; being treated nonoperatively with IV antibiotics and bowel rest
Afebrile, HR now WNL
WBC 8.5
� Diverticulitis with partial large bowel obstruction
�No concerning signs for peritonitis or perforation; continue nonoperative management
�Repeat CT shows stable findings associated with severe diverticulitis and mural edema, no concerns for large bowel obstruction
� Appreciate GI; recommending against flex sig due to possible stricture from inflammation - has signed off
� Continue low residue with Ensure
� Continue DVT PPx with Lovenox
� Continue home meds
� Continue IV cefepime and Flagyl
� Pain control with Tylenol and oxycodone; okay to increase regimen to improve pain control
-Patient has much improved. There is no surgery at this time please contact surgical. Discussed with patient.
Subjective Data
Subjective Data
Date of Service: January 26, 2024
Patient states that he is feeling 'pretty good'. He has no abdominal pain today. He is having bowel function. He is eating without difficulty.
Objective Data
-
Vital Signs
Temp Pulse Resp BP Pulse Ox
98.3 F 102 20 114/78 99
01/26/24 07:40 01/26/24 08:01 01/26/24 08:01 01/26/24 07:40 01/26/24 08:01
Intake & Output
01/25/24 01/26/24 01/27/24
06:59 06:59 06:59
Intake Total 1090 / 1090 1440 / 1440
Output Total 675 / 675 1150 / 1150
Balance 415 / 415 290 / 290
Intake:
Oral fluids 890 / 890 1440 / 1440
IV piggybacks 200 / 200
Output:
Urine, Voided 675 / 675 1150 / 1150
Other:
Number of approximated MODERATE 2
amounts of urine
Lab Results
01/26/24 06:25
01/24/24 03:51
Physical Exam
-
General: No Acute Distress and AOx3
Abdomen: Soft, Non Distended and Non Tender
Skin: Warm and Dry
--- NOTE | 2024-01-26 13:44 | W.DS.TRANS ---
DC Summary - Primary Clinician
-
Discharge Instructions:
Discharge Diagnosis/Procedures Diverticulitis
Diet Low Residue
Instructions:
Stand-Alone Forms:
Changes to Home Medications: Yes
Discharge Medications:
DC Medications w/original date entered in [employer]
albuterol sulfate 90 mcg/actuation aerosol inhaler (Ventolin HFA) 2 puff inhalation R QIDPRN PRN sob/wheezing 01/15/24
atorvastatin 40 mg tablet 40 mg PO QPM High Cholesterol 01/15/24
baclofen 5 mg tablet 5 mg PO TIDPRN PRN muscle pain 01/15/24
budesonide-formoterol HFA 160 mcg-4.5 mcg/actuation aerosol inhaler (Symbicort) 2 puff inhalation R BID Lung/Breathing Issues 01/15/24
chlorpheniramine-acetaminophen 2 mg-325 mg tablet 1 tab PO DAILYPRN PRN congestion 01/15/24
diltiazem HCl 180 mg capsule,extended release 24 hr 180 mg PO DAILY Blood Pressure 01/15/24
docusate sodium 100 mg capsule 100 mg PO DAILY Constipation 01/15/24
isosorbide mononitrate 60 mg tablet,extended release 24 hr 60 mg PO BID Heart Disease/Condition 01/15/24
lidocaine-prilocaine 2.5 %-2.5 % topical cream 1 applic topical TIDPRN PRN back pain 01/15/24
lorazepam 1 mg tablet 1 mg PO TIDPRN PRN anxiety 01/15/24
nitroglycerin 0.4 mg sublingual tablet 0.4 mg sublingual [id number] PRN chest pain 01/15/24
ondansetron HCl 8 mg tablet 8 mg PO BIDPRN PRN nausea/vomiting 01/15/24
oxycodone 20 mg tablet 20 mg PO Q4HPRN PRN moderate pain 01/15/24
oxycodone 20 mg tablet,crush resistant,extended release 12 hr (OxyContin) 20 mg PO Q12H Pain 01/15/24
pantoprazole 20 mg tablet,delayed release 20 mg PO DAILYPRN PRN gi issues 01/15/24
peppermint oil 90 mg capsule,delayed,extended release (IBgard) 180 mg PO DAILY Supplement 01/15/24
rimegepant 75 mg disintegrating tablet (Nurtec ODT) 75 mg PO Q48H migraine 01/15/24
roflumilast 500 mcg tablet 500 mcg PO DAILY Lung/Breathing Issues 01/15/24
simethicone 80 mg chewable tablet 80 mg PO DAILYPRN PRN bloating 01/15/24
theophylline 600 mg tablet,extended release 24 hr 600 mg PO DAILY Lung/Breathing Issues 01/15/24
tiotropium bromide 18 mcg capsule with inhalation device (Spiriva with HandiHaler) 1 cap inhalation R DAILY Lung/Breathing Issues 01/15/24
yartvmveix-vpoyoysstsppr-qvdwqqvq 50 mg-300 mg-40 mg capsule 1 cap PO QID PRN migraine 01/16/24
amoxicillin 875 mg-potassium clavulanate 125 mg tablet 1 tab PO Q12H #10 tabs 01/26/24
docusate sodium 100 mg capsule 100 mg PO BID #60 caps 01/26/24
polyethylene glycol 3350 17 gram oral powder packet (HealthyLax) 17 g PO DAILY #30 ea 01/26/24
Home Medication Changes
Antibiotics to complete additional 5 days
Pending Results: No
[2024-01-26] MEDS: FIORICET 1 TAB PO (14:19)
[2024-01-26 15:41] VITALS: BP 100/72
--- NOTE | 2024-01-26 15:47 | CM ---
Plan is to home with [facility].
Plan; Home today with [facility], Brian Baltazar to help patient after discharge.
== END 2024-01-26 16:31 | disposition home health service (06) | DRG 392 ==
LOC: 4 WEST ACU 01:02
PROVIDERS: Internal Medicine; Nurse Practitioner Family; Physician Assistant; Student in an Organized Health Care Education/Training Program; Surgery; ADMITTING PHYSICIAN Hospitalist; ATTENDING PHYSICIAN Internal Medicine; CONSULT PHYSICIAN Internal Medicine Critical Care Medicine; CONSULT PHYSICIAN Internal Medicine Gastroenterology; CONSULT PHYSICIAN Surgery; EMERGENCY PHYSICIAN Emergency Medicine; FAMILY PHYSICIAN Internal Medicine
DX: K57.32 Diverticulitis of large intestine without perforation or abscess without bleeding (principal); F11.20 Opioid dependence, uncomplicated; J96.11 Chronic respiratory failure with hypoxia; E44.1 Mild protein-calorie malnutrition; K56.690 Other partial intestinal obstruction; Q43.8 Other specified congenital malformations of intestine; J43.9 Emphysema, unspecified; F17.200 Nicotine dependence, unspecified, uncomplicated; E78.00 Pure hypercholesterolemia, unspecified; F41.9 Anxiety disorder, unspecified; G43.909 Migraine, unspecified, not intractable, without status migrainosus; I25.10 Atherosclerotic heart disease of native coronary artery without angina pectoris; D64.9 Anemia, unspecified; E87.6 Hypokalemia; K21.9 Gastro-esophageal reflux disease without esophagitis; G89.4 Chronic pain syndrome; I10 Essential (primary) hypertension; M50.30 Other cervical disc degeneration, unspecified cervical region; Z99.81 Dependence on supplemental oxygen; Z95.5 Presence of coronary angioplasty implant and graft; Z82.49 Family history of ischemic heart disease and other diseases of the circulatory system; Z79.51 Long term (current) use of inhaled steroids; Z88.2 Allergy status to sulfonamides; Z98.1 Arthrodesis status; Z68.22 Body mass index [BMI] 22.0-22.9, adult
CPT/HCPCS: 36600; 71045; 74177; 74270; 76642; 77062; 77066; 80048; 80053; 81003; 81015; 82805; 82962; 83540; 83550; 83735; 83993; 85025; 85027; 85652; 86140; 87045; 87046; 87324; 87427; 87449; 89055; 93005; 94640; 96365; 96375; 96376; 97110; 97116; 97162; 97166; 97530; 97535; 99285; Q9967